=== PATIENT | male | born 1985 | race Caucasian/White ===

== ENCOUNTER → 2017-02-14 20:48 | Emergency (ER) | payer SELFPAY ==
[~2017-02-14 20:48] MED LIST: ALPRAZolam TAB* 0.5 MG PO ONE; FLUoxetine CAP* 20 MG PO ONE; Haloperidol TAB* 5 MG PO ONE; Ibuprofen TAB* 600 MG PO ONE; Mouth Piece, Nicotine* 1 EACH CARTRIDGE INH ONE; Mouth Piece, Nicotine* 1 EACH CARTRIDGE ONE; Nicotine GUM* 2 MG ONE; Nicotine Inhaler* 10 MG AMP ONE; clonazePAM TAB(*) 0.5 MG PO ONE
[2017-02-14 21:30] LABS: Hematocrit 44 % (42-52); Hemoglobin 15.3 g/dl (14.0-18.0); Mean Corpuscular HGB Conc 35 g/dl (31-36); Mean Corpuscular Hemoglobin 33 pg (27-31); Mean Corpuscular Volume 97 fL (80-94); Mean Platelet Volume 7 um3 (7.4-10.4); Red Blood Count 4.59 10^6/ul (4.0-5.4); Red Cell Distribution Width 13 % (10.5-15); White Blood Count 8.5 10^3/ul (3.5-10.8)
[2017-02-14 21:44] LABS: ALT 13 U/L (7-52); AST 17 U/L (13-39); Albumin 4.1 g/dL (3.2-5.2); Alkaline Phosphatase 41 U/L (34-104); Anion Gap 6 mmol/L (2-11); BUN/Creatinine Ratio 13.8 (8-20); Blood Urea Nitrogen 11 mg/dL (6-24); CO2 Carbon Dioxide 26 mmol/L (22-32); Calcium 8.9 mg/dL (8.6-10.3); Chloride 105 mmol/L (101-111); EGFR Non-African American 113.5 (>60); Globulin 2.4 g/dL (2-4); Glucose 76 mg/dL (70-100); Potassium 3.6 mmol/L (3.5-5.0); Sodium 137 mmol/L (133-145); Total Protein 6.5 g/dL (6.4-8.9)
[2017-02-14] MEDS: Nicotine Inhaler* 10 MG AMP INH PRN (21:55)
[2017-02-14 22:14] LABS: Acetaminophen < 15 mcg/mL; Alcohol 68 mg/dL (<10); Salicylate < 2.50 mg/dL (<30)
[2017-02-14] MEDS: Nicotine GUM* 2 MG PO PRN (22:15)
[2017-02-14 22:29] LABS: TSH (Thyroid Stimulating Horm) 1.36 mcIU/mL (0.34-5.60)
[2017-02-15] MEDS: Nicotine GUM* 2 MG PO PRN ×2 (02:05→05:55)
[2017-02-15 03:17] LABS: Urine Bacteria Absent (Absent); Urine Bilirubin Negative (Negative); Urine Glucose Negative (Negative); Urine Nitrite Negative (Negative)
[2017-02-15 03:22] LABS: Benzodiazepine Urine Screen Presumptive Positive (None Detect)
--- NOTE | 2017-02-15 03:41 | ED ---
Shay Montana Nilda, scribed for Ben Calderon MD on 02/14/17 at 2117 . Psychiatric Complaint - HPI Summary HPI Summary: This patient is a 31 year old M BIBA to [facility] with a chief complaint of SI with a plan for the past 2 days and called the police today. The patient rates the pain 0/10 in severity. Patient denies being hospitalized before for mental health. Per triage note patient denies HI. Patient is noncompliant with medications. He reports drinking minimal alcohol today (Monica Wyman) and denies substance abuse. PMHx includes SHELBIE, manic depressive disorder, and OCD ( obsessive about the anxiety). - History Of Current Complaint Chief Complaint: EDMentalHealth Time Seen by Provider: 02/14/17 21:01 Hx Obtained From: Patient, Medical Records Onset/Duration: Sudden Onset, Lasting Days - 2 days Timing: Constant Character: Anxious Aggravating Factor(s): Medication Non-compliance Related History: Positive For: Prior Psychiatric Issues - SHELBIE, Manic depressive disorder, OCD (obsessive about the anxiety) Has Suicidal: Reports: Thoughts, With A Plan Has Homicidal: Denies: Thoughts - Allergies/Home Medications Allergies/Adverse Reactions: Allergies Allergy/AdvReac Type Severity Reaction Status Date / Time Meloxicam Allergy Unknown Verified 02/14/17 22:23 Reaction Details PMH/Surg Hx/FS Hx/Imm Hx Sensory History: Denies: Hx Legally Blind Psychiatric History: Reports: Hx Anxiety, Other Psychiatric Issues/Disorders - Manic Depressive disorder, OCD (obsessive about the anxiety) Infectious Disease History: No Infectious Disease History: Denies: Traveled Outside the [place] in Last 30 Days - Family History Known Family History: Positive: Hypertension, Other - Anxiety, COPD, HLD - Social History Alcohol Use: Occasionally Substance Use Type: Reports: Marijuana Substance Use Comment - Amount & Last Used: former heroin user Smoking Status (MU): Heavy Every Day Tobacco Smoker Review of Systems Negative: Shortness Of Breath Positive: Anxious, Other - SI with a plan; negative HI All Other Systems Reviewed And Are Negative: Yes Physical Exam Triage Information Reviewed: Yes Vital Signs On Initial Exam: Initial Vitals Temp Pulse Resp BP Pulse Ox 98.1 F 66 18 117/73 98 02/14/17 20:54 02/14/17 20:54 02/14/17 20:54 02/14/17 20:54 02/14/17 20:54 Vital Signs Reviewed: Yes Appearance: Positive: Well-Appearing, No Pain Distress Skin: Positive: Warm, Skin Color Reflects Adequate Perfusion, Dry Head/Face: Positive: Normal Head/Face Inspection Eyes: Positive: EOMI, YESICA ENT: Positive: Normal ENT inspection Respiratory/Lung Sounds: Positive: Clear to Auscultation, Breath Sounds Present Cardiovascular: Positive: RRR Abdomen Description: Positive: Nontender, Soft Bowel Sounds: Positive: Present Musculoskeletal: Positive: Normal, Strength/ROM Intact Neurological: Positive: Normal, Sensory/Motor Intact, Alert, Oriented to Person Place, Time Psychiatric: Positive: Affect/Mood Appropriate - Bridgette Coma Scale Coma Scale Total: 15 Diagnostics - Vital Signs Vital Signs Temp Pulse Resp BP Pulse Ox 02/14/17 20:54 98.1 F 66 18 117/73 98 - Laboratory Lab Results: Lab Results 02/14/17 02/14/17 02/15/17 Range/Units 21:20 21:20 02:45 WBC 8.5 (3.5-10.8) 10^3/ul RBC 4.59 (4.0-5.4) 10^6/ul Hgb 15.3 (14.0-18.0) g/dl Hct 44 (42-52) % MCV 97 H (80-94) fL MCH 33 H (27-31) pg MCHC 35 (31-36) g/dl RDW 13 (10.5-15) % Plt Count 230 (150-450) 10^3/ul MPV 7 L (7.4-10.4) um3 Neut % (Auto) 44.9 (38-83) % Lymph % (Auto) 43.5 (25-47) % [place] % (Auto) 7.3 (1-9) % Eos % (Auto) 3.2 (0-6) % Baso % (Auto) 1.1 (0-2) % Absolute Neuts (auto) 3.8 (1.5-7.7) 10^3/ul Absolute Lymphs (auto) 3.7 (1.0-4.8) 10^3/ul Absolute Monos (auto) 0.6 (0-0.8) 10^3/ul Absolute Eos (auto) 0.3 (0-0.6) 10^3/ul Absolute Basos (auto) 0.1 (0-0.2) 10^3/ul Absolute Nucleated RBC 0 10^3/ul Nucleated RBC % 0 Sodium 137 (133-145) mmol/L Potassium 3.6 (3.5-5.0) mmol/L Chloride 105 (101-111) mmol/L Carbon Dioxide 26 (22-32) mmol/L Anion Gap 6 (2-11) mmol/L BUN 11 (6-24) mg/dL Creatinine 0.80 (0.67-1.17) mg/dL Est GFR ( Amer) 146.0 (>60) Est GFR (Non-Af Amer) 113.5 (>60) BUN/Creatinine Ratio 13.8 (8-20) Glucose 76 (70-100) mg/dL Calcium 8.9 (8.6-10.3) mg/dL Total Bilirubin 0.50 (0.2-1.0) mg/dL AST 17 (13-39) U/L ALT 13 (7-52) U/L Alkaline Phosphatase 41 (34-104) U/L Total Protein 6.5 (6.4-8.9) g/dL Albumin 4.1 (3.2-5.2) g/dL Globulin 2.4 (2-4) g/dL Albumin/Globulin Ratio 1.7 (1-3) TSH 1.36 (0.34-5.60) mcIU/mL Urine Color Urine Appearance Urine pH (5-9) Ur Specific [place] (1.010-1.030) Urine Protein (Negative) Urine Ketones (Negative) Urine Blood (Negative) Urine Nitrate (Negative) Urine Bilirubin (Negative) Urine Urobilinogen (Negative) Ur Leukocyte Esterase (Negative) Urine WBC (Auto) (Absent) Urine RBC (Auto) (Absent) Urine Bacteria (Absent) Urine Glucose (Negative) Salicylates < 2.50 (<30) mg/dL Urine Opiates Screen None detected (None Detect) Acetaminophen < 15 mcg/mL Ur Barbiturates Screen None detected (None Detect) Ur Phencyclidine Scrn None detected (None Detect) Ur Amphetamines Screen None detected (None Detect) U Benzodiazepines Scrn Presumptive positive H (None Detect) Urine Cocaine Screen None detected (None Detect) U Cannabinoids Screen Presumptive positive H (None Detect) Serum Alcohol 68 H (<10) mg/dL 10/17/17 Range/Units 02:45 WBC (3.5-10.8) 10^3/ul RBC (4.0-5.4) 10^6/ul Hgb (14.0-18.0) g/dl Hct (42-52) % MCV (80-94) fL MCH (27-31) pg MCHC (31-36) g/dl RDW (10.5-15) % Plt Count (150-450) 10^3/ul MPV (7.4-10.4) um3 Neut % (Auto) (38-83) % Lymph % (Auto) (25-47) % [place] % (Auto) (1-9) % Eos % (Auto) (0-6) % Baso % (Auto) (0-2) % Absolute Neuts (auto) (1.5-7.7) 10^3/ul Absolute Lymphs (auto) (1.0-4.8) 10^3/ul Absolute Monos (auto) (0-0.8) 10^3/ul Absolute Eos (auto) (0-0.6) 10^3/ul Absolute Basos (auto) (0-0.2) 10^3/ul Absolute Nucleated RBC 10^3/ul Nucleated RBC % Sodium (133-145) mmol/L Potassium (3.5-5.0) mmol/L Chloride (101-111) mmol/L Carbon Dioxide (22-32) mmol/L Anion Gap (2-11) mmol/L BUN (6-24) mg/dL Creatinine (0.67-1.17) mg/dL Est GFR ( Amer) (>60) Est GFR (Non-Af Amer) (>60) BUN/Creatinine Ratio (8-20) Glucose (70-100) mg/dL Calcium (8.6-10.3) mg/dL Total Bilirubin (0.2-1.0) mg/dL AST (13-39) U/L ALT (7-52) U/L Alkaline Phosphatase (34-104) U/L Total Protein (6.4-8.9) g/dL Albumin (3.2-5.2) g/dL Globulin (2-4) g/dL Albumin/Globulin Ratio (1-3) TSH (0.34-5.60) mcIU/mL Urine Color Yellow Urine Appearance Clear Urine pH 6.0 (5-9) Ur Specific [place] 1.013 (1.010-1.030) Urine Protein Negative (Negative) Urine Ketones Negative (Negative) Urine Blood 1+ H (Negative) Urine Nitrate Negative (Negative) Urine Bilirubin Negative (Negative) Urine Urobilinogen Negative (Negative) Ur Leukocyte Esterase Negative (Negative) Urine WBC (Auto) Trace(0-5/hpf) (Absent) Urine RBC (Auto) Trace(0-2/hpf) (Absent) Urine Bacteria Absent (Absent) Urine Glucose Negative (Negative) Salicylates (<30) mg/dL Urine Opiates Screen (None Detect) Acetaminophen mcg/mL Ur Barbiturates Screen (None Detect) Ur Phencyclidine Scrn (None Detect) Ur Amphetamines Screen (None Detect) U Benzodiazepines Scrn (None Detect) Urine Cocaine Screen (None Detect) U Cannabinoids Screen (None Detect) Serum Alcohol (<10) mg/dL Result Diagrams: 02/14/17 21:20 02/14/17 21:20 Lab Statement: Any lab studies that have been ordered have been reviewed, and results considered in the medical decision making process. - EKG 03:00 Cardiac Rate: NL EKG Rhythm: Sinus Rhythm ST Segment: Normal Ectopy: None - WI 207 Course/Dx - Course Course Of Treatment: ADMIT TO MHU - Differential Dx/Clinical Impression Provider Diagnosis: Mental health problem Discharge - Discharge Plan Condition: Stable Disposition: PSYCHIATRIC FACILITY-OTHER Discharge Disposition Comment: Signed out pending shift change. Referrals: Non Staff,Doctor [Primary Care Provider] - The documentation as recorded by the Shay beatty Nilda accurately reflects the service I personally performed and the decisions made by me, Ben Calderon MD.
[2017-02-15] MEDS: Nicotine Inhaler* 10 MG AMP INH PRN (05:55)
[2017-02-15 16:39] VITALS: BP 120/72
== END ==
LOC: ED 20:48
DX: R45.851 Suicidal ideations (principal); F41.9 Anxiety disorder, unspecified; F42.9 Obsessive-compulsive disorder, unspecified; Z91.14 Patient's other noncompliance with medication regimen; F12.90 Cannabis use, unspecified, uncomplicated; F17.210 Nicotine dependence, cigarettes, uncomplicated
CPT/HCPCS: 36415; 80053; 80307; 80320; 80329; 81003; 81015; 84443; 85025; 93005; 99282; A9270-GY; G0480

== ENCOUNTER 2017-09-06 08:24 | Emergency (ER) | payer OTHER ==
[2017-09-06 09:30] LABS: ABS Basophils 0 10^3/ul (0-0.2); ABS Eosinophils 0.4 10^3/ul (0-0.6); ABS Monocytes 0.6 10^3/ul (0-0.8); ABS Nucleated RBC 0 10^3/ul; Eosinophil % 4.4 % (0-6); Hematocrit 41 % (42-52); Hemoglobin 14.2 g/dl (14.0-18.0); Lymphocyte % 25.5 % (25-47); Mean Corpuscular HGB Conc 35 g/dl (31-36); Mean Corpuscular Hemoglobin 32 pg (27-31); Mean Corpuscular Volume 93 fL (80-94); Mean Platelet Volume 7.3 um3 (7.4-10.4); Nucleated Red Blood Cells % 0; Platelet Count 221 10^3/ul (150-450); Red Cell Distribution Width 13 % (10.5-15)
--- NOTE | 2017-09-06 09:35 | RAD ---
INDICATION: Left ankle pain COMPARISON: None TECHNIQUE: AP, lateral, and oblique views were obtained. FINDINGS: There is no acute fracture or dislocation. There is lateral soft tissue swelling. IMPRESSION: LATERAL SOFT TISSUE SWELLING. NO ACUTE FRACTURE.
[2017-09-06 09:52] LABS: EGFR Non-African American 102.3 (>60)
--- NOTE | 2017-09-06 10:13 | RAD ---
INDICATION: Leg numbness COMPARISON: None TECHNIQUE: Routine PA, lateral, and oblique imaging was performed . FINDINGS: Bones: There are no acute bony findings. There are no significant osteoarthritic findings. Alignment: Normal Disc spaces: The disc spaces are well-maintained Soft tissues: There are no soft tissue abnormalities. IMPRESSION: NEGATIVE EXAMINATION
[2017-09-06 11:54] VITALS: BP 101/70
--- NOTE | 2017-09-07 08:31 | ED ---
Carlos Montana Jennifer, scribed for Naomi Valdez MD on 09/06/17 at 0912 . Lower Extremity - HPI Summary HPI Summary: The patient is a 32 year old male who presents with left leg pain that began two days ago. The patient reports it began as numbness in his left toes to ankle. Yesterday, the pain radiated up his left calf to the knee. He reports he has no control over his mobility. He denies recent trauma. The patient denies history of blood clots. He denies any current back pain. The patient denies bowel or bladder incontinence, saddle anesthesia, N/V/F - History of Current Complaint Chief Complaint: EDExtremityLower Stated Complaint: LT FOOT NUMBNESS Time Seen by Provider: 09/06/17 08:51 Hx Obtained From: Patient Mechanism Of Injury: Unknown Onset of Pain: Days - 2 days Onset/Duration: Still Present Severity Initially: Moderate Severity Currently: Moderate Pain Intensity: 6 Pain Scale Used: 0-10 Numeric Timing: Constant Location: Is Diffuse - left toes radiates Character Of Pain: Stiffness - Numbness/Tingling Associated Signs And Symptoms: Positive: Other - numbness in left toes, pain radiating up left leg, back pain. NEGATIVE: incontinence. Aggravating Factor(s): Ambulation Alleviating Factor(s): Nothing Able to Bear Weight: Yes - Allergies/Home Medications Allergies/Adverse Reactions: Allergies Allergy/AdvReac Type Severity Reaction Status Date / Time meloxicam Allergy Hives Verified 09/06/17 08:34 Home Medications: Home Medications Fluoxetine HCl [Fluoxetine HCl] 40 mg PO DAILY 09/06/17 [History Confirmed 09/06] clonazePAM [Clonazepam] 0.5 mg PO BID 09/06/17 [History Confirmed 09/06/17] PMH/Surg Hx/FS Hx/Imm Hx Endocrine/Hematology History: Denies: Hx Diabetes, Other Endocrine/Hematological Disorders - Blood clot Cardiovascular History: Denies: Hx Hypertension Sensory History: Denies: Hx Legally Blind Opthamlomology History: Denies: Hx Legally Blind Psychiatric History: Reports: Hx Anxiety, Other Psychiatric Issues/Disorders - Manic Depressive disorder, OCD (obsessive about the anxiety) Denies: Hx Eating Disorder - Surgical History Surgery Procedure, Year, and Place: Shoulder surgery Infectious Disease History: No Infectious Disease History: Denies: Traveled Outside the [place] in Last 30 Days - Family History Known Family History: Positive: Hypertension, Other - Anxiety, COPD, HLD - Social History Alcohol Use: Occasionally Substance Use Type: Reports: Marijuana Substance Use Comment - Amount & Last Used: former heroin user Hx Tobacco Use: Yes Smoking Status (MU): Heavy Every Day Tobacco Smoker Review of Systems Negative: incontinence Positive: Other - Back pain, left leg pain All Other Systems Reviewed And Are Negative: Yes Physical Exam - Summary Physical Exam Summary: GENERAL: ~Patient is a well developed and nourished __(M/F)__ who is lying comfortable in the stretcher. ~Patient is not in any acute respiratory distress. HEAD AND FACE: Normocephalic EYES: PERRLA, EOMI x 2. EARS: Hearing grossly intact. MOUTH: Oropharynx within normal limits. NECK: Supple, trachea is midline, no adenopathy, no JVD, no carotid bruit. CHEST: Symmetric, no tenderness at palpation LUNGS: Clear to auscultation bilaterally. No wheezing or crackles. CVS: Regular rate and rhythm, S1 and S2 present, no murmurs or gallops appreciated. ABDOMEN: Soft, non-tender. Bowel sounds are normal. No abdominal abnormal pulsations. EXTREMITIES: Some bruising on bilateral extremities, upper and lower. 5/5 motor in general. Sensation intact in lower extremities. swelling the lateral ankle on the left without warmth or erythema Full ROM in all major joints, no edema, no cyanosis or clubbing. NEURO: Alert and oriented x 3. No acute neurological deficits. Speech is normal and follows commands. SKIN: Dry and warm Triage Information Reviewed: Yes Vital Signs On Initial Exam: Initial Vitals Temp Pulse Resp BP Pulse Ox 97.7 F 85 16 109/65 100 09/06/17 08:35 09/06/17 08:35 09/06/17 08:35 09/06/17 08:35 09/06/17 08:35 Vital Signs Reviewed: Yes Diagnostics - Vital Signs Vital Signs Temp Pulse Resp BP Pulse Ox 09/06/17 08:35 97.7 F 85 16 109/65 100 - Laboratory Lab Results: Lab Results 09/06/17 09/06/17 09/06/17 Range/Units 09:21 09:21 09:21 WBC 8.0 (3.5-10.8) 10^3/ul RBC 4.40 (4.0-5.4) 10^6/ul Hgb 14.2 (14.0-18.0) g/dl Hct 41 L (42-52) % MCV 93 (80-94) fL MCH 32 H (27-31) pg MCHC 35 (31-36) g/dl RDW 13 (10.5-15) % Plt Count 221 (150-450) 10^3/ul MPV 7.3 L (7.4-10.4) um3 Neut % (Auto) 61.9 (38-83) % Lymph % (Auto) 25.5 (25-47) % [place] % (Auto) 7.6 H (0-7) % Eos % (Auto) 4.4 (0-6) % Baso % (Auto) 0.6 (0-2) % Absolute Neuts (auto) 5.0 (1.5-7.7) 10^3/ul Absolute Lymphs (auto) 2.0 (1.0-4.8) 10^3/ul Absolute Monos (auto) 0.6 (0-0.8) 10^3/ul Absolute Eos (auto) 0.4 (0-0.6) 10^3/ul Absolute Basos (auto) 0 (0-0.2) 10^3/ul Absolute Nucleated RBC 0 10^3/ul Nucleated RBC % 0 ESR 1 (0-14) mm/Hr APTT 31.8 (26.0-36.3) seconds D-Dimer, Quantitative < 200 (Less Than 230) ng/mL Sodium 136 L (139-145) mmol/L Potassium 3.7 (3.5-5.0) mmol/L Chloride 101 (101-111) mmol/L Carbon Dioxide 30 (22-32) mmol/L Anion Gap 5 (2-11) mmol/L BUN 12 (6-24) mg/dL Creatinine 0.87 (0.67-1.17) mg/dL Est GFR ( Amer) 131.6 (>60) Est GFR (Non-Af Amer) 102.3 (>60) BUN/Creatinine Ratio 13.8 (8-20) Glucose 100 (70-100) mg/dL Lactic Acid (0.5-2.0) mmol/L Calcium 8.8 (8.6-10.3) mg/dL Magnesium 2.2 (1.9-2.7) mg/dL Total Bilirubin 0.30 (0.2-1.0) mg/dL AST 18 (13-39) U/L ALT 9 (7-52) U/L Alkaline Phosphatase 45 (34-104) U/L C-React Prot High Sens 2.17 mg/L Total Protein 6.3 L (6.4-8.9) g/dL Albumin 4.1 (3.2-5.2) g/dL Globulin 2.2 (2-4) g/dL Albumin/Globulin Ratio 1.9 (1-3) 09/06/17 09/06/17 Range/Units 09:21 09:21 WBC (3.5-10.8) 10^3/ul RBC (4.0-5.4) 10^6/ul Hgb (14.0-18.0) g/dl Hct (42-52) % MCV (80-94) fL MCH (27-31) pg MCHC (31-36) g/dl RDW (10.5-15) % Plt Count (150-450) 10^3/ul MPV (7.4-10.4) um3 Neut % (Auto) (38-83) % Lymph % (Auto) (25-47) % [place] % (Auto) (0-7) % Eos % (Auto) (0-6) % Baso % (Auto) (0-2) % Absolute Neuts (auto) (1.5-7.7) 10^3/ul Absolute Lymphs (auto) (1.0-4.8) 10^3/ul Absolute Monos (auto) (0-0.8) 10^3/ul Absolute Eos (auto) (0-0.6) 10^3/ul Absolute Basos (auto) (0-0.2) 10^3/ul Absolute Nucleated RBC 10^3/ul Nucleated RBC % ESR (0-14) mm/Hr APTT (26.0-36.3) seconds D-Dimer, Quantitative (Less Than 230) ng/mL Sodium (139-145) mmol/L Potassium (3.5-5.0) mmol/L Chloride (101-111) mmol/L Carbon Dioxide (22-32) mmol/L Anion Gap (2-11) mmol/L BUN (6-24) mg/dL Creatinine (0.67-1.17) mg/dL Est GFR ( Amer) (>60) Est GFR (Non-Af Amer) (>60) BUN/Creatinine Ratio (8-20) Glucose (70-100) mg/dL Lactic Acid 1.2 (0.5-2.0) mmol/L Calcium 8.9 (8.6-10.3) mg/dL Magnesium (1.9-2.7) mg/dL Total Bilirubin (0.2-1.0) mg/dL AST (13-39) U/L ALT (7-52) U/L Alkaline Phosphatase (34-104) U/L C-React Prot High Sens mg/L Total Protein (6.4-8.9) g/dL Albumin (3.2-5.2) g/dL Globulin (2-4) g/dL Albumin/Globulin Ratio (1-3) Result Diagrams: 09/06/17 09:21 09/06/17 09:21 Lab Statement: Any lab studies that have been ordered have been reviewed, and results considered in the medical decision making process. - Radiology Ankle XR Xray Interpretation: No Acute Changes - LATERAL SOFT TISSUE SWELLING. NO ACUTE FRACTURE. Dr. Valdez has reviewed this report. Radiology Interpretation Completed By: Radiologist L-Spine XR Xray Interpretation: No Acute Changes - NEGATIVE EXAMINATION. Dr. Valdez has reviewed this report. Radiology Interpretation Completed By: Radiologist Lower Extremity Course/Dx - Course Course Of Treatment: The patient is a 32 year old male who presents with left leg pain that began two days ago. Bloodwork was obtained. Ankle XR and L-spine XR were obtained and showedsoft tissue swelling of the left ankle. The patient is diagnosed with pain in the extremities. The patient is instructed to follow up with orthopedics in 3 days. Return precautions given - Diagnoses Provider Diagnoses: Extremity pain Discharge - Sign-Out/Discharge Documenting (check all that apply): Discharge/Admit/Transfer - Discharge Plan Condition: Stable Disposition: HOME Patient Education Materials: Leg Pain (ED) Referrals: Jose Ortiz MD [Medical Doctor] - Additional Instructions: Follow up with Dr. Vail, orthopedics, in three days. Return to the emergency department for any new or worsening symptoms. - Billing Disposition and Condition Condition: STABLE Disposition: HOME The documentation as recorded by the Carlos beatty Jennifer accurately reflects the service I personally performed and the decisions made by me, Naomi Valdez MD.
== END 2017-09-06 11:53 | disposition home or self-care (01) ==
LOC: ED 08:24
DX: M79.605 Pain in left leg (principal); M54.9 Dorsalgia, unspecified; F17.210 Nicotine dependence, cigarettes, uncomplicated
CPT/HCPCS: 36415; 72110; 80053; 82310; 83605; 83735; 85025; 85379; 85652; 85730; 86141; 99282

== ENCOUNTER 2017-09-15 08:27 | Emergency (ER) | payer OTHER ==
[2017-09-15 08:38] VITALS: BP 121/82
[2017-09-15] MEDS ORDERED: Ketorolac INJ* 30 MG/ML 1 ML VIAL IV PUSH ONE (09:01)
[2017-09-15] MEDS ORDERED: Nicotine Inhaler* 10 MG AMP INH ONE (09:08)
[2017-09-15] MEDS ORDERED: Mouth Piece, Nicotine* 1 EACH CARTRIDGE INH PRN ×2 (09:08→10:57)
[2017-09-15] MEDS ORDERED: Mouth Piece, Nicotine* 1 EACH CARTRIDGE ONE (09:14)
[2017-09-15 09:37] LABS: Hematocrit 45 % (42-52); Hemoglobin 15.4 g/dl (14.0-18.0); Mean Corpuscular HGB Conc 34 g/dl (31-36); Mean Corpuscular Hemoglobin 32 pg (27-31); Mean Corpuscular Volume 93 fL (80-94); Mean Platelet Volume 7.8 um3 (7.4-10.4); Platelet Count 228 10^3/ul (150-450); Red Blood Count 4.83 10^6/ul (4.0-5.4); Red Cell Distribution Width 13 % (10.5-15); White Blood Count 12.8 10^3/ul (3.5-10.8)
[2017-09-15 09:53] LABS: EGFR Non-African American 114.4 (>60)
[2017-09-15] MEDS ORDERED: traMADol TAB* 50 MG PO ONE (10:30)
--- NOTE | 2017-09-15 10:32 | RAD ---
INDICATION: Unable to move left foot. 32-year-old patient. COMPARISON: None TECHNIQUE: Ankle brachial indices were calculated with Doppler waveform analysis of the dorsalis pedis and posterior tibial arteries. The right ankle-brachial index is calculated at 1.4. Waveform analysis shows triphasic waveforms The left ankle-brachial index is calculated at 1.4. Waveform analysis shows triphasic waveforms . IMPRESSION: NORMAL ANKLE-BRACHIAL INDICES.
[2017-09-15] MEDS ORDERED: Nicotine Inhaler* 10 MG AMP ONE (10:56)
[2017-09-15] MEDS ORDERED: Nicotine Inhaler* 10 MG AMP INH PRN (10:57)
[2017-09-15] MEDS ORDERED: HYDROcodone/ACETAMIN 5-325 MG* 1 TAB PO ONE (13:18)
[2017-09-15] MEDS ORDERED: HYDROcodone/ACETAMIN 5-325 MG* 1 TAB ONE (13:20)
--- NOTE | 2017-09-15 21:17 | CONS ---
CONSULTATION REPORT: DATE OF CONSULT: 09/15/17 PATIENT OF: Dr. Messina. PRIMARY CARE PHYSICIAN: There is no primary care physician. HISTORY OF PRESENT ILLNESS: This is a 32-year-old right-handed man who, about 10 days ago, developed some numbness by his left ankle. This slowly progressed to the lateral aspect of the left leg, just higher up in his left knee. The inner aspect of his leg is not affected. In addition, he has had weakness in his left leg at his ankle, both dorsiflexion and plantar flexion. This has been steady in the past 9 days or so. He does not think it has gotten worse. He does not have any bowel or bladder problems. He has no back pain, but has foot, ankle, and knee pain. and a change in walking. He walks with a footdrop and lifts his leg up higher. Of note, he also has a C1-C2 fracture, apparently happening 10 years ago. There was no cord compression at this time, although he said there was apparently some significant central stenosis. He has no symptoms in the right leg or in either arm. The numbness does go into his toes. PAST MEDICAL HISTORY: He has anxiety, manic depressive disorder, and some OCD. PAST SURGICAL HISTORY: He has had shoulder surgery. MEDICATIONS: Include: 1. Tramadol. 2. Prozac 40 mg daily. 3. Klonopin 0.5 t.i.d. p.r.n. ALLERGIES: He is allergic to MELOXICAM. FAMILY HISTORY: Significant for hypertension, OCD, COPD, and hyperlipidemia. SOCIAL HISTORY: He drinks alcohol occasionally, uses marijuana occasionally. He is a former heroin abuser. He is a heavy everyday smoker. PHYSICAL EXAM: Temperature 98.6, pulse 54, respiratory rate 16, blood pressure 121/82. He is alert and oriented with normal speech and comprehension. Cranial nerves II through XII are intact. Fundi were benign. Motor exam revealed normal tone and strength in his upper extremities and in his right leg. He has 0/5 strength with dorsiflexion, inversion, eversion of his left foot with 3-/5 strength in his left plantar flexion. Sensation is decreased to touch and pin from the lateral aspect of his leg above the knee down into his foot. Sensation is otherwise intact. He has 1+ reflexes in his arms, 3+ reflexes in his leg with perhaps a hint of clonus at the knees. He has 2+ right ankle jerk, absent left ankle jerk. Toes were equivocal to downgoing. Chest: Clear. Cardiovascular: Regular rate and rhythm. Abdomen: Soft with positive bowel sounds. DIAGNOSTIC STUDIES/LAB DATA: His white count is 12.8, normal CBC otherwise. CMP was normal other than a total protein of 6.3 and a sodium of 137. He was positive for cannabinoids and benzodiazepines in his urine. Serum alcohol was negative. He had a lumbar x-ray on 09/16/17, which was negative. ASSESSMENT AND PLAN: I discussed with Qasim that he has not just footdrop or weakness in his gastrocs as well, which means that it is not a single nerve root that is injured, it would be at least L5 and S1. The absent ankle jerk on that side suggested this is a nerve impingement causing the specific problem as well as the numbness that is mostly radicular pattern rather than a central pattern. Since his weakness is very significant of recent onset and his numbness is getting worse, it makes sense to get a lumbar MRI scan today. He also has abnormal knee reflexes and with his history of significant cervical injury as well as chronic neck pain, I wonder whether there is some degree of stenosis perhaps irritating his spinal cord. I do think that this is likely cause of his foot weakness, but because of issues mentioned above and because his symptoms are not bilateral, but we will see what that shows as well. Dr. Messina is going to see -maybe that he needs to be admitted for observation if the MRI scan cannot be done in the near future. Thank you for sharing his case. [id number]/[facility] #: [id number] [facility]
--- NOTE | 2017-09-16 19:03 | ED ---
Mariela Montana Gabriel, scribed for Cornelio Messina MD on 09/15/17 at 0851 . Lower Extremity - HPI Summary HPI Summary: This patient is a 32 year old M presenting to [facility] [place] accompanied by his fianc with a chief complaint of LLE pain that began ten days ago. The patient rates the pain 6/10 in severity. Patient reports numbness, tingling, trouble ambulating, paralysis of the left foot/ankle, and disturbed sleep due to pain. Patient denies injury and incontinence. Pt states he has been falling very often due to him catching it on things due to a drop. Pt had bilateral blurred vision and near LOC 3 days before the symptoms began her is unsure if this contributed to the current complaint. Pt denies history of blood clots in his family. He attempted to call Dr. Vail from his last visit and was unable to be seen. Current even day smoker. - History of Current Complaint Chief Complaint: EDExtremityLower Stated Complaint: LT LEG PROBLEM Time Seen by Provider: 09/15/17 08:40 Hx Obtained From: Patient Mechanism Of Injury: Unknown Onset/Duration: Still Present Severity Initially: Moderate Severity Currently: Moderate Pain Intensity: 6 Pain Scale Used: 0-10 Numeric Timing: Constant Associated Signs And Symptoms: Positive: Other - numbness, tingling, trouble ambulating, paralysis of the left foot/ankle Able to Bear Weight: Yes - Allergies/Home Medications Allergies/Adverse Reactions: Allergies Allergy/AdvReac Type Severity Reaction Status Date / Time meloxicam Allergy Hives Verified 09/15/17 08:29 Home Medications: Home Medications FLUoxetine CAP* [PROzac CAP*] 40 mg PO DAILY 09/15/17 [History Confirmed ] Ibuprofen TAB* [Advil TAB*] 200 - 800 mg PO Q6H PRN 09/15/17 [History Confirmed 09/15/17] clonazePAM TAB(*) [KlonoPIN TAB(*)] 0.5 mg PO TID PRN 09/15/17 [History Confirmed 09/15/17] PMH/Surg Hx/FS Hx/Imm Hx Endocrine/Hematology History: Denies: Hx Diabetes, Other Endocrine/Hematological Disorders - Blood clot Cardiovascular History: Denies: Hx Hypertension Musculoskeletal History: Reports: Other Musculoskeletal History - broken neck Sensory History: Denies: Hx Legally Blind Opthamlomology History: Denies: Hx Legally Blind Psychiatric History: Reports: Hx Anxiety, Other Psychiatric Issues/Disorders - Manic Depressive disorder, OCD (obsessive about the anxiety) Denies: Hx Eating Disorder - Surgical History Surgery Procedure, Year, and Place: Shoulder surgery Infectious Disease History: No Infectious Disease History: Denies: Traveled Outside the [place] in Last 30 Days - Family History Known Family History: Positive: Cardiac Disease, Hypertension, Other - Anxiety, COPD, HLD - Social History Lives: With Family Alcohol Use: Occasionally Substance Use Type: Reports: Marijuana Substance Use Comment - Amount & Last Used: former heroin user Hx Tobacco Use: Yes Smoking Status (MU): Heavy Every Day Tobacco Smoker Review of Systems Positive: Other - trouble ambulating, paralysis of the left foot/ankle, and disturbed sleep due to pain. Negative: Fever, Chills Negative: Erythema Negative: Sore Throat Negative: Chest Pain Negative: Shortness Of Breath, Cough Negative: Abdominal Pain, Vomiting, Nausea Negative: dysuria, hematuria Positive: Other - LLE pain . Negative: Myalgia, Edema Negative: Rash Neurological: Negative - dizziness Positive: Numbness All Other Systems Reviewed And Are Negative: Yes Physical Exam - Summary Physical Exam Summary: Constitutional: Well-developed, Well-nourished, Alert. (-) Distressed Skin: Warm, Dry HENT: Normocephalic; Atraumatic Eyes: Conjunctiva normal Neck: Musculoskeletal ROM normal neck. (-) JVD, (-) Stridor, (-) Tracheal deviation Cardio: Rhythm regular, rate normal, Heart sounds normal;. Radial pulses are 2+ and symmetric. (-) Murmur. There is good posterior distal tibialis pulses but the pedal pulse is not palpable Pulmonary/Chest wall: Effort normal. (-) Respiratory distress, (-) Wheezes, (-) Rales Abd: Soft, (-) Tenderness, (-) Distension, (-) Guarding, (-) Rebound Musculoskeletal: (-) Edema, there is no obvious foot drop on ambulation, steady gait Lymph: (-) Cervical adenopathy Neuro: Alert, Oriented x3 Psych: Mood and affect Normal Bed side Doppler was used and dorsal pedal pulse was not found Triage Information Reviewed: Yes Vital Signs On Initial Exam: Initial Vitals Temp Pulse Resp BP Pulse Ox 98.6 F 54 16 121/82 97 09/15/17 08:29 09/15/17 08:29 09/15/17 08:29 09/15/17 08:29 09/15/17 08:29 Vital Signs Reviewed: Yes Diagnostics - Vital Signs Vital Signs Temp Pulse Resp BP Pulse Ox 09/15/17 08:29 98.6 F 54 16 121/82 97 - Laboratory Result Diagrams: 09/15/17 09:26 09/15/17 09:26 Lab Statement: Any lab studies that have been ordered have been reviewed, and results considered in the medical decision making process. - Additional Comments Diagnostic Additional Comments: Extremity arterial study reveals, per radiologist, NORMAL ANKLE-BRACHIAL INDICES. ED physician has reviewed this radiology report Re-Evaluation - Re-Evaluation First Eval Re-Evaluation Time: 10:34 Change: Unchanged Comment: Pt does not dorsiflex his foot with painful stimulus. He sates he has a neurology appointment in [place] coming up. Second Eval Re-Evaluation Time: 14:38 Change: Worse Comment: The patient ios requesting to leave. He states he needs to go home to watch his child. He will sign out AMA. Lower Extremity Course/Dx - Course Assessment/Plan: This patient is a 32 year old M presenting to [facility] accompanied by his fianc with a chief complaint of LLE pain that began ten days ago. The patient rates the pain 6/10 in severity. Patient reports numbness , tingling, trouble ambulating, paralysis of the left foot/ankle, and disturbed sleep due to pain. Patient denies injury and incontinence. Pt states he has been falling very often due to him catching it on things due to a drop. Pt had bilateral blurred vision and near LOC 3 days before the symptoms began her is unsure if this contributed to the current complaint. Pt denies history of blood clots in his family. He attempted to call Dr. Vail from his last visit and was unable to be seen. Current even day smoker. The patient is going back and forth on whether he has pain or numbness. Originally he claimed it was numb, then he would complain of pain. Extremity arterial study reveals, per radiologist, NORMAL ANKLE-BRACHIAL INDICES. ED physician has reviewed this radiology report. Test results with no significant abnormalities. In the ED course the patient was given ultram and toradol which relieved his pain. [id number] We discussed patient care with Dr. Barksdale after he saw the patient. He recommended a MRI neck and L- spine as well as an OBV to admit. The patient is refusing to stay and will sign out AMA. He was informed about his appointment this Tuesday that was organized for him. - Diagnoses Provider Diagnoses: Foot drop, Left against medical advice - Physician Notifications Discussed Care Of Patient With: Reyes Barksdale Time Discussed With Above Provider: 10:34 Instructed by Provider To: Other - He has agreed to come see the patient. Discharge - Sign-Out/Discharge Documenting (check all that apply): Discharge/Admit/Transfer - Discharge Plan Condition: Fair Disposition: AGAINST MEDICAL ADVICE The documentation as recorded by the Mariela beatty Gabriel accurately reflects the service I personally performed and the decisions made by me, Cornelio Messina MD.
== END 2017-09-15 15:11 | disposition left against medical advice (07) ==
LOC: ED 08:27
DX: M21.372 Foot drop, left foot (principal); F17.200 Nicotine dependence, unspecified, uncomplicated; Z91.81 History of falling; Z53.21 Procedure and treatment not carried out due to patient leaving prior to being seen by health care provider; Z88.8 Allergy status to other drugs, medicaments and biological substances
CPT/HCPCS: 36415; 80053; 80307; 80320; 85027; 86140; 93922; 96374; 99283; A9270-GY; G0480; J1885

== ENCOUNTER 2018-02-28 21:53 | Emergency (ER) | payer OTHER ==
[2018-02-28 22:26] LABS: Urine Appearance Clear; Urine Blood 1+ (Negative); Urine Color Straw; Urine Ketones Negative (Negative); Urine Protein Negative (Negative); Urine Red Blood Cell Trace(0-2/hpf) (Absent); Urine Specific Gravity 1.004 (1.010-1.030); Urine Urobilinogen Negative (Negative); Urine White Blood Cell Absent (Absent)
[2018-02-28] MEDS ORDERED: Nicotine Inhaler* 10 MG AMP ONE (22:29)
[2018-02-28] MEDS ORDERED: Mouth Piece, Nicotine* 1 EACH CARTRIDGE ONE (22:29)
[2018-02-28 22:34] LABS: ABS Basophils 0.1 10^3/ul (0-0.2); ABS Eosinophils 0.3 10^3/ul (0-0.6); ABS Lymphocytes 3.5 10^3/ul (1.0-4.8); ABS Monocytes 0.8 10^3/ul (0-0.8); ABS Neutrophils 7.2 10^3/ul (1.5-7.7); ABS Nucleated RBC 0 10^3/ul; Eosinophil % 2.1 % (0-6); Hematocrit 48 % (42-52); Hemoglobin 16.8 g/dl (14.0-18.0); Lymphocyte % 29.7 % (25-47); Mean Corpuscular HGB Conc 35 g/dl (31-36); Mean Corpuscular Hemoglobin 33 pg (27-31); Mean Corpuscular Volume 94 fL (80-94); Mean Platelet Volume 7.6 um3 (7.4-10.4); Nucleated Red Blood Cells % 0.1; Platelet Count 232 10^3/ul (150-450); Red Blood Count 5.16 10^6/ul (4.00-5.40); Red Cell Distribution Width 13 % (10.5-15); White Blood Count 11.9 10^3/ul (3.5-10.8)
[2018-02-28 22:48] LABS: EGFR Non-African American 108.1 (>60)
[2018-02-28] MEDS ORDERED: Mouth Piece, Nicotine* 1 EACH CARTRIDGE INH ONE (23:00)
[2018-02-28] MEDS ORDERED: Haloperidol INJ IV/IM* 5 MG/ML AMP ONE (23:07)
[2018-02-28] MEDS ORDERED: diPHENhydraMINE PO* 50 MG ONE (23:07)
[2018-02-28] MEDS ORDERED: LORazepam INJ* 2 MG/ML 1 ML VIAL ONE (23:07)
--- NOTE | 2018-02-28 23:39 | ED ---
Psychiatric Complaint - HPI Summary HPI Summary: A 32 y/o male presents to the ED c/o SI. According to him on 02/24/2018 he took 22 valium attempting suicide but still woke up the next day. The patient states that he is "looking around the room for things to kill himself with" but states that he came into the ED because he wants the suicidal thoughts to stop. 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 - History Of Current Complaint Chief Complaint: EDMentalHealth Time Seen by Provider: 02/28/18 22:06 Hx Obtained From: Patient Onset/Duration: Sudden Onset, Still Present Timing: Constant Severity Initially: Moderate Severity Currently: Moderate Character: Frustrated Has Suicidal: Reports: Thoughts, With A Plan - Allergies/Home Medications Allergies/Adverse Reactions: Allergies Allergy/AdvReac Type Severity Reaction Status Date / Time meloxicam Allergy Hives Verified 02/28/18 22:00 PMH/Surg Hx/FS Hx/Imm Hx Endocrine/Hematology History: Denies: Hx Diabetes, Other Endocrine/Hematological Disorders - Blood clot Cardiovascular History: Denies: Hx Hypertension Musculoskeletal History: Reports: Other Musculoskeletal History - broken neck Sensory History: Denies: Hx Legally Blind Opthamlomology History: Denies: Hx Legally Blind Psychiatric History: Reports: Hx Anxiety, Other Psychiatric Issues/Disorders - Manic Depressive disorder, OCD (obsessive about the anxiety) Denies: Hx Eating Disorder - Surgical History Surgery Procedure, Year, and Place: Shoulder surgery Infectious Disease History: No Infectious Disease History: Denies: Traveled Outside the [place] in Last 30 Days - Family History Known Family History: Positive: Cardiac Disease, Hypertension, Other - Anxiety, COPD, HLD - Social History Alcohol Use: Daily Alcohol Amount: drinking more since taken off meds by OR Substance Use Type: Reports: Marijuana, Other Substance Use Comment - Amount & Last Used: former heroin user,opioids. Hx Tobacco Use: Yes Smoking Status (MU): Heavy Every Day Tobacco Smoker Review of Systems Negative: Fever Positive: Other - Positive: SI with a plan All Other Systems Reviewed And Are Negative: Yes Physical Exam - Summary Physical Exam Summary: Appearance: Well appearing, no pain distress Skin: warm, dry, reflects adequate perfusion Head/face: normal Eyes: EOMI, YESICA ENT: normal Neck: supple, non-tender Respiratory: CTA, breath sounds present Cardiovascular: RRR, pulses symmetrical Abdomen: non-tender, soft Bowel: present Musculoskeletal: normal, strength/ROM intact Neuro: normal, sensory motor intact, A&Ox3 Psych: Depressed affect, anxious Triage Information Reviewed: Yes Vital Signs On Initial Exam: Initial Vitals Temp Pulse Resp BP Pulse Ox 98.0 F 84 16 113/98 98 02/28/18 21:57 02/28/18 21:57 02/28/18 21:57 02/28/18 21:57 02/28/18 21:57 Vital Signs Reviewed: Yes Diagnostics - Vital Signs Vital Signs Temp Pulse Resp BP Pulse Ox 02/28/18 21:57 98.0 F 84 16 113/98 98 - Laboratory Lab Results: Lab Results 02/28/18 02/28/18 02/28/18 Range/Units 22:16 22:16 22:26 WBC 11.9 H (3.5-10.8) 10^3/ul RBC 5.16 (4.00-5.40) 10^6/ul Hgb 16.8 (14.0-18.0) g/dl Hct 48 (42-52) % MCV 94 (80-94) fL MCH 33 H (27-31) pg MCHC 35 (31-36) g/dl RDW 13 (10.5-15) % Plt Count 232 (150-450) 10^3/ul MPV 7.6 (7.4-10.4) um3 Neut % (Auto) 60.4 (38-83) % Lymph % (Auto) 29.7 (25-47) % [place] % (Auto) 7.1 H (0-7) % Eos % (Auto) 2.1 (0-6) % Baso % (Auto) 0.7 (0-2) % Absolute Neuts (auto) 7.2 (1.5-7.7) 10^3/ul Absolute Lymphs (auto) 3.5 (1.0-4.8) 10^3/ul Absolute Monos (auto) 0.8 (0-0.8) 10^3/ul Absolute Eos (auto) 0.3 (0-0.6) 10^3/ul Absolute Basos (auto) 0.1 (0-0.2) 10^3/ul Absolute Nucleated RBC 0 10^3/ul Nucleated RBC % 0.1 Sodium (135-145) mmol/L Potassium (3.5-5.0) mmol/L Chloride (101-111) mmol/L Carbon Dioxide (22-32) mmol/L Anion Gap (2-11) mmol/L BUN (6-24) mg/dL Creatinine (0.67-1.17) mg/dL Est GFR ( Amer) (>60) Est GFR (Non-Af Amer) (>60) BUN/Creatinine Ratio (8-20) Glucose (70-100) mg/dL Calcium (8.6-10.3) mg/dL Total Bilirubin (0.2-1.0) mg/dL AST (13-39) U/L ALT (7-52) U/L Alkaline Phosphatase (34-104) U/L Total Protein (6.4-8.9) g/dL Albumin (3.2-5.2) g/dL Globulin (2-4) g/dL Albumin/Globulin Ratio (1-3) TSH Urine Color Straw Urine Appearance Clear Urine pH 6.0 (5-9) Ur Specific [place] 1.004 L (1.010-1.030) Urine Protein Negative (Negative) Urine Ketones Negative (Negative) Urine Blood 1+ A (Negative) Urine Nitrate Negative (Negative) Urine Bilirubin Negative (Negative) Urine Urobilinogen Negative (Negative) Ur Leukocyte Esterase Negative (Negative) Urine WBC (Auto) Absent (Absent) Urine RBC (Auto) Trace(0-2/hpf) (Absent) Urine Bacteria Absent (Absent) Urine Glucose Negative (Negative) Salicylates (<30) mg/dL Urine Opiates Screen None detected (None Detect) Acetaminophen mcg/mL Ur Barbiturates Screen None detected (None Detect) Ur Phencyclidine Scrn None detected (None Detect) Ur Amphetamines Screen None detected (None Detect) U Benzodiazepines Scrn Presumptive positive A (None Detect) Urine Cocaine Screen None detected (None Detect) U Cannabinoids Screen Presumptive positive A (None Detect) Serum Alcohol (<10) mg/dL 02/28/18 Range/Units 22:26 WBC (3.5-10.8) 10^3/ul RBC (4.00-5.40) 10^6/ul Hgb (14.0-18.0) g/dl Hct (42-52) % MCV (80-94) fL MCH (27-31) pg MCHC (31-36) g/dl RDW (10.5-15) % Plt Count (150-450) 10^3/ul MPV (7.4-10.4) um3 Neut % (Auto) (38-83) % Lymph % (Auto) (25-47) % Duval % (Auto) (0-7) % Eos % (Auto) (0-6) % Baso % (Auto) (0-2) % Absolute Neuts (auto) (1.5-7.7) 10^3/ul Absolute Lymphs (auto) (1.0-4.8) 10^3/ul Absolute Monos (auto) (0-0.8) 10^3/ul Absolute Eos (auto) (0-0.6) 10^3/ul Absolute Basos (auto) (0-0.2) 10^3/ul Absolute Nucleated RBC 10^3/ul Nucleated RBC % Sodium 143 (135-145) mmol/L Potassium 4.0 (3.5-5.0) mmol/L Chloride 111 (101-111) mmol/L Carbon Dioxide 25 (22-32) mmol/L Anion Gap 7 (2-11) mmol/L BUN 9 (6-24) mg/dL Creatinine 0.83 (0.67-1.17) mg/dL Est GFR ( Amer) 130.8 (>60) Est GFR (Non-Af Amer) 108.1 (>60) BUN/Creatinine Ratio 10.8 (8-20) Glucose 87 (70-100) mg/dL Calcium 9.4 (8.6-10.3) mg/dL Total Bilirubin 0.50 (0.2-1.0) mg/dL AST 17 (13-39) U/L ALT 11 (7-52) U/L Alkaline Phosphatase 47 (34-104) U/L Total Protein 6.8 (6.4-8.9) g/dL Albumin 4.5 (3.2-5.2) g/dL Globulin 2.3 (2-4) g/dL Albumin/Globulin Ratio 2.0 (1-3) TSH Pending Urine Color Urine Appearance Urine pH (5-9) Ur Specific [place] (1.010-1.030) Urine Protein (Negative) Urine Ketones (Negative) Urine Blood (Negative) Urine Nitrate (Negative) Urine Bilirubin (Negative) Urine Urobilinogen (Negative) Ur Leukocyte Esterase (Negative) Urine WBC (Auto) (Absent) Urine RBC (Auto) (Absent) Urine Bacteria (Absent) Urine Glucose (Negative) Salicylates < 2.50 (<30) mg/dL Urine Opiates Screen (None Detect) Acetaminophen < 15 mcg/mL Ur Barbiturates Screen (None Detect) Ur Phencyclidine Scrn (None Detect) Ur Amphetamines Screen (None Detect) U Benzodiazepines Scrn (None Detect) Urine Cocaine Screen (None Detect) U Cannabinoids Screen (None Detect) Serum Alcohol 127 H (<10) mg/dL Result Diagrams: 02/28/18 22:26 02/28/18 22:26 Lab Statement: Any lab studies that have been ordered have been reviewed, and results considered in the medical decision making process. Re-Evaluation - Re-Evaluation First Eval Re-Evaluation Time: 00:42 Change: Unchanged Comment: Pt has been medically cleared for MHE. Course/Dx - Course Course Of Treatment: A 32 y/o male presents to the ED c/o SI. According to him on 02/24/2018 he took 22 valium attempting to kill himself but still woke up the next day. The patient has been sleeping and is pending MHE. He will be signed out to Dr. Valdez at shift change. Dx: depression, SI, substance abuse. - Differential Dx/Clinical Impression Differential Diagnosis/HQI/PQRI: Positive: Anxiety, Depression, Suicidal Ideation Provider Diagnosis: Depression, Suicidal ideation, Substance abuse - Critical Care Time Critical Care Time: 30-74 min Discharge - Sign-Out/Discharge Documenting (check all that apply): Sign-Out Patient Signing out patient TO: Naomi Valdez - Discharge Plan Referrals: No Primary Care Phys,NOPCP [Primary Care Provider] - - Attestation Statements Document Initiated by Scribe: Yes Documenting Scribe: Chaz Cornejo Provider For Whom Scribe is Documenting (Include Credential): Tim Omer MD Scribe Attestation: IChaz, scribed for Tim Omer MD on 03/01/18 at 0620. Scribe Documentation Reviewed: Yes Provider Attestation: The documentation as recorded by the scribe, Chaz Cornejo accurately reflects the service I personally performed and the decisions made by me, iTm Omer MD
[2018-02-28] MEDS ORDERED: Nicotine Inhaler* 10 MG AMP INH ONE (23:54)
[2018-03-01] MEDS ORDERED: methylPREDNISolone 125 MG* 2 ML VIAL ONE (04:12)
--- NOTE | 2018-03-01 08:01 | ED ---
Progress - Progress Note Progress Note: This patient was signed out to Dr. Valdez from Dr. Omer, pending dispo, awaiting MHE. MHE was done by Dr. Vizcaino at 1001 and the patient will be discharged with dx of substance abuse. This patient is not currently suicidal. He will go to [facility] in [place] for detox tomorrow. The patient is hemodynamically stable and safe for discharge. Re-Evaluation - Re-Evaluation First Eval Re-Evaluation Time: 00:42 Change: Unchanged Comment: Pt has been medically cleared for MHE. Course/Dx - Diagnoses Provider Diagnoses: Depression, Suicidal ideation, Substance abuse Discharge - Sign-Out/Discharge Documenting (check all that apply): Patient Departure - Discharge Plan Condition: Stable Disposition: HOME Referrals: [facility] [Outside] Additional Instructions: RETURN TO THE EMERGENCY DEPARTMENT FOR CHANGING OR WORSENING SYMPTOMS. - Billing Disposition and Condition Condition: STABLE Disposition: Home - Attestation Statements Document Initiated by Scribe: Yes Documenting Scribe: Raj Kohli Provider For Whom Scribe is Documenting (Include Credential): Naomi Valdez MD Scribe Attestation: Raj Montana, scribed for Naomi Valdez MD on 03/02/18 at 2013. Scribe Documentation Reviewed: Yes Provider Attestation: The documentation as recorded by the Raj beatty accurately reflects the service I personally performed and the decisions made by , Naomi Valdez MD
[2018-03-01] MEDS: Nicotine GUM* 2 MG PO PRN ×2 (08:07→10:09)
--- NOTE | 2018-03-01 09:05 | PN ---
ED Flex Patient Progress Note Date of Service: 02/28/18 Subjective: This is a 32 year-old M who is pending admission to [facility] / transfer to another psychiatric facility / discharge to home / or being observed secondary to suicidal attempt and drug abuse. Pt. examined in ER room 7. He is drinking coffee. Objective: Vitals: Most recent vital signs documented below. General NAD, Alert and oriented x3. Laboratory: Current laboratory results documented below. Assessment: Pending MHE. Plan: Pending psychiatric or medical consultation to observe / transfer / admit / discharge will follow up daily . Vital Signs Temp Pulse Resp BP Pulse Ox 98.0 F 73 16 114/63 94 02/28/18 21:57 03/01/18 07:00 03/01/18 06:30 03/01/18 06:30 03/01/18 07:00 Lab Results - Entire Visit 02/28/18 02/28/18 02/28/18 22:26 22:26 22:16 WBC 11.9 H RBC 5.16 Hgb 16.8 Hct 48 MCV 94 MCH 33 H MCHC 35 RDW 13 Plt Count 232 MPV 7.6 Neut % (Auto) 60.4 Lymph % (Auto) 29.7 [place] % (Auto) 7.1 H Eos % (Auto) 2.1 Baso % (Auto) 0.7 Absolute Neuts (auto) 7.2 Absolute Lymphs (auto) 3.5 Absolute Monos (auto) 0.8 Absolute Eos (auto) 0.3 Absolute Basos (auto) 0.1 Absolute Nucleated RBC 0 Nucleated RBC % 0.1 Sodium 143 Potassium 4.0 Chloride 111 Carbon Dioxide 25 Anion Gap 7 BUN 9 Creatinine 0.83 Est GFR ( Amer) 130.8 Est GFR (Non-Af Amer) 108.1 BUN/Creatinine Ratio 10.8 Glucose 87 Calcium 9.4 Total Bilirubin 0.50 AST 17 ALT 11 Alkaline Phosphatase 47 Total Protein 6.8 Albumin 4.5 Globulin 2.3 Albumin/Globulin Ratio 2.0 TSH 1.02 Urine Color Urine Appearance Urine pH Ur Specific [place] Urine Protein Urine Ketones Urine Blood Urine Nitrate Urine Bilirubin Urine Urobilinogen Ur Leukocyte Esterase Urine WBC (Auto) Urine RBC (Auto) Urine Bacteria Urine Glucose Salicylates < 2.50 Urine Opiates Screen None detected Acetaminophen < 15 Ur Barbiturates Screen None detected Ur Phencyclidine Scrn None detected Ur Amphetamines Screen None detected U Benzodiazepines Scrn Presumptive positive A Urine Cocaine Screen None detected U Cannabinoids Screen Presumptive positive A Serum Alcohol 127 H 02/28/18 22:16 WBC RBC Hgb Hct MCV MCH MCHC RDW Plt Count MPV Neut % (Auto) Lymph % (Auto) [place] % (Auto) Eos % (Auto) Baso % (Auto) Absolute Neuts (auto) Absolute Lymphs (auto) Absolute Monos (auto) Absolute Eos (auto) Absolute Basos (auto) Absolute Nucleated RBC Nucleated RBC % Sodium Potassium Chloride Carbon Dioxide Anion Gap BUN Creatinine Est GFR ( Amer) Est GFR (Non-Af Amer) BUN/Creatinine Ratio Glucose Calcium Total Bilirubin AST ALT Alkaline Phosphatase Total Protein Albumin Globulin Albumin/Globulin Ratio TSH Urine Color Straw Urine Appearance Clear Urine pH 6.0 Ur Specific [place] 1.004 L Urine Protein Negative Urine Ketones Negative Urine Blood 1+ A Urine Nitrate Negative Urine Bilirubin Negative Urine Urobilinogen Negative Ur Leukocyte Esterase Negative Urine WBC (Auto) Absent Urine RBC (Auto) Trace(0-2/hpf) Urine Bacteria Absent Urine Glucose Negative Salicylates Urine Opiates Screen Acetaminophen Ur Barbiturates Screen Ur Phencyclidine Scrn Ur Amphetamines Screen U Benzodiazepines Scrn Urine Cocaine Screen U Cannabinoids Screen Serum Alcohol
[2018-03-01] MEDS ORDERED: LORazepam TAB(*) 1 MG PO ONE (10:16)
[2018-03-01 10:53] VITALS: BP 118/70
== END 2018-03-01 10:49 | disposition home or self-care (01) ==
LOC: ED 21:53
DX: F32.9 Major depressive disorder, single episode, unspecified (principal); R45.851 Suicidal ideations; F19.10 Other psychoactive substance abuse, uncomplicated; F17.210 Nicotine dependence, cigarettes, uncomplicated; F11.11 Opioid abuse, in remission; F10.10 Alcohol abuse, uncomplicated; Y90.6 Blood alcohol level of 120-199 mg/100 ml
CPT/HCPCS: 36415; 80053; 80307; 80320; 80329; 81003; 81015; 84443; 85025; 96374; 96375; 99285; A9270-GY; G0480; J1630; J2060; J2930

== ENCOUNTER 2018-09-06 17:12 | Inpatient (IN) | payer MEDICARE, MEDICAID ==
[2018-09-06 18:57] LABS: ABS Basophils 0.1 10^3/ul (0-0.2); ABS Eosinophils 0.2 10^3/ul (0-0.6); ABS Monocytes 0.9 10^3/ul (0-0.8); Eosinophil % 1.5 %; Hematocrit 47 % (42-52); Hemoglobin 16.4 g/dL (14.0-18.0); Lymphocyte % 39.4 %; Mean Corpuscular HGB Conc 35 g/dL (31-36); Mean Corpuscular Hemoglobin 33 pg (27-31); Mean Corpuscular Volume 94 fL (80-94); Mean Platelet Volume 8.2 fL (7.4-10.4); Nucleated Red Blood Cells % 0.1; Platelet Count 219 10^3/uL (150-450); Red Blood Count 5.01 10^6 /uL (4.18-5.48); Red Cell Distribution Width 13 % (10.5-15); White Blood Count 10.1 10^3/uL (3.5-10.8)
[2018-09-06 19:13] LABS: ALT 22 U/L (7-52); AST 28 U/L (13-39); Albumin 4.9 g/dL (3.2-5.2); Albumin/Globulin Ratio 2.1 (1-3); Alcohol < 10 mg/dL (<10); Alkaline Phosphatase 39 U/L (34-104); Anion Gap 6 mmol/L (2-11); BUN/Creatinine Ratio 13.5 (8-20); Blood Urea Nitrogen 13 mg/dL (6-24); CO2 Carbon Dioxide 26 mmol/L (22-32); Calcium 9.7 mg/dL (8.6-10.3); Chloride 107 mmol/L (101-111); EGFR African American 109.8 (>60); EGFR Non-African American 90.8 (>60); Globulin 2.3 g/dL (2-4); Glucose 82 mg/dL (70-100); Potassium 3.9 mmol/L (3.5-5.0); Salicylate < 2.50 mg/dL (<30); Sodium 139 mmol/L (135-145); Total Protein 7.2 g/dL (6.4-8.9)
[2018-09-06 19:14] LABS: Urine Appearance Clear; Urine Bacteria Absent (Absent); Urine Bilirubin Negative (Negative); Urine Blood 1+ (Negative); Urine Color Yellow; Urine Glucose Negative (Negative); Urine Ketones Negative (Negative); Urine Nitrite Negative (Negative); Urine Protein Negative (Negative); Urine Red Blood Cell 1+(3-5/hpf) (Absent); Urine Specific Gravity 1.003 (1.010-1.030); Urine Urobilinogen Negative (Negative); Urine White Blood Cell Absent (Absent)
[2018-09-06 19:18] LABS: Acetaminophen < 3 mcg/mL
[2018-09-06 19:25] LABS: TSH (Thyroid Stimulating Horm) 2.46 mcIU/mL (0.34-5.60)
[2018-09-06 19:33] LABS: Urine Benzodiazepine Screen None Detected (None Detect); Urine Opiates Screen None Detected (None Detect)
--- NOTE | 2018-09-06 19:39 | ED ---
Psychiatric Complaint - HPI Summary HPI Summary: Pt is a 33 y/o M presenting to the ED with a chief complaint of paranoia. He states he has been here many times and has many diagnoses including paranoia, ADHD, and anxiety, d/t being a . He currently denies SI/HI, and hallucinations. However, he states he will get impulses to do things like suicide or homicide, completely out of the blue, and that hes so paranoid that he does foot patrols around his property and has plans for every kind of situation that could go wrong. He currently takes Depakote, Klonopin, Seroquil, and Zyprexa, but his psychiatrist wants to switch him to Haloperidol. - History Of Current Complaint Chief Complaint: EDMentalHealth Time Seen by Provider: 09/06/18 18:29 Accompanied By: alone Hx Obtained From: Patient Onset/Duration: Sudden Onset, Lasting Minutes, Resolved Timing: Minutes Severity Initially: Severe Severity Currently: Mild Character: Anxious Aggravating Factor(s): Nothing Alleviating Factor(s): Nothing Associated Signs And Symptoms: Positive: Paranoid Behavior. Negative: Hallucinating Related History: Positive For: Prior Psychiatric Issues Has Suicidal: Denies: Thoughts Has Homicidal: Denies: Thoughts - Allergies/Home Medications Allergies/Adverse Reactions: Allergies Allergy/AdvReac Type Severity Reaction Status Date / Time meloxicam Allergy Hives Verified 02/28/18 22:00 Home Medications: Home Medications Divalproex ER TAB(*) [Depakote ER TAB(*)] 1,500 mg PO QAM 09/06/18 [History Confirmed 09/06/18] Gabapentin 800 mg PO TID 09/06/18 [History Confirmed 09/06/18] OLANzapine TAB* [Zyprexa 5 MG TAB*] 5 mg PO BEDTIME 09/06/18 [History Confirmed 09/06/18] Oxycodone IR 10 MG(NF) 10 mg PO TID 09/06/18 [History Confirmed 09/06/18] Quetiapine Fumarate 200 mg PO TID 09/06/18 [History Confirmed 09/06/18] PMH/Surg Hx/FS Hx/Imm Hx Previously Healthy: No Endocrine/Hematology History: Denies: Hx Diabetes, Other Endocrine/Hematological Disorders - Blood clot Cardiovascular History: Denies: Hx Hypertension, Hx Pacemaker/ICD Musculoskeletal History: Reports: Other Musculoskeletal History - broken neck Sensory History: Denies: Hx Legally Blind, Hx Hearing Aid Opthamlomology History: Denies: Hx Legally Blind Neurological History: Reports: Other Neuro Impairments/Disorders - C1-C2 FX 2008 Psychiatric History: Reports: Hx Anxiety, Hx Attention Deficit Hyperactivity Disorder, Hx Eating Disorder, Other Psychiatric Issues/Disorders - Manic Depressive disorder, OCD (obsessive about the anxiety) Denies: Hx Panic Disorder, Hx of Violent Episodes Against Others - Surgical History Surgery Procedure, Year, and Place: 2-Lt Shoulder surgery-2008. [facility] Infectious Disease History: No Infectious Disease History: Denies: Traveled Outside the [place] in Last 30 Days - Family History Known Family History: Positive: Cardiac Disease, Hypertension, Other - Anxiety, COPD, HLD - Social History Lives: With Family Alcohol Use: Daily Alcohol Amount: 2 beers last night. no drinks today Hx Substance Use: Yes Substance Use Type: Reports: Heroin Substance Use Comment - Amount & Last Used: former heroin user,opioids. Hx Tobacco Use: Yes Smoking Status (MU): Heavy Every Day Tobacco Smoker Review of Systems Negative: Other - SI/HI Negative: Other - hallucinations Positive: Anxious, Other - paranoid All Other Systems Reviewed And Are Negative: Yes Physical Exam - Summary Physical Exam Summary: GENERAL: Patient is a well-developed and nourished male who is lying comfortable in the stretcher. Patient is not in any acute respiratory distress. HEAD AND FACE: Normocephalic EYES: PERRLA, EOMI x 2. EARS: Hearing grossly intact. MOUTH: Oropharynx within normal limits. NECK: Supple, trachea is midline, no adenopathy, no JVD, no carotid bruit. CHEST: Symmetric, no tenderness at palpation LUNGS: Clear to auscultation bilaterally. No wheezing or crackles. CVS: Regular rate and rhythm, S1 and S2 present, no murmurs or gallops appreciated. ABDOMEN: Soft, non-tender. Bowel sounds are normal. No abnormal abdominal pulsations. EXTREMITIES: Full ROM in all major joints, no edema, no cyanosis or clubbing. NEURO: Alert and oriented x 3. No acute neurological deficits. Speech is normal and follows commands. SKIN: Dry and warm Psych: Pressured speech, racing thoughts, no SI/HI, no visible or auditory hallucinations. Triage Information Reviewed: Yes Vital Signs On Initial Exam: Initial Vitals Temp Pulse Resp BP Pulse Ox 98.6 F 93 16 138/97 97 09/06/18 17:13 09/06/18 17:13 09/06/18 17:13 09/06/18 17:13 09/06/18 17:13 Vital Signs Reviewed: Yes Diagnostics - Vital Signs Vital Signs Temp Pulse Resp BP Pulse Ox 09/06/18 17:13 98.6 F 93 16 138/97 97 - Laboratory Lab Results: Lab Results 09/06/18 09/06/18 09/06/18 Range/Units 18:42 18:42 18:46 WBC 10.1 (3.5-10.8) 10^3/uL RBC 5.01 (4.18-5.48) 10^6 /uL Hgb 16.4 (14.0-18.0) g/dL Hct 47 (42-52) % MCV 94 (80-94) fL MCH 33 H (27-31) pg MCHC 35 (31-36) g/dL RDW 13 (10.5-15) % Plt Count 219 (150-450) 10^3/uL MPV 8.2 (7.4-10.4) fL Neut % (Auto) 49.1 % Lymph % (Auto) 39.4 % [place] % (Auto) 9.3 % Eos % (Auto) 1.5 % Baso % (Auto) 0.7 % Absolute Neuts (auto) 5.0 (1.5-7.7) 10^3/ul Absolute Lymphs (auto) 4.0 (1.0-4.8) 10^3/ul Absolute Monos (auto) 0.9 H (0-0.8) 10^3/ul Absolute Eos (auto) 0.2 (0-0.6) 10^3/ul Absolute Basos (auto) 0.1 (0-0.2) 10^3/ul Absolute Nucleated RBC 0.0 10^3/ul Nucleated RBC % 0.1 Sodium 139 (135-145) mmol/L Potassium 3.9 (3.5-5.0) mmol/L Chloride 107 (101-111) mmol/L Carbon Dioxide 26 (22-32) mmol/L Anion Gap 6 (2-11) mmol/L BUN 13 (6-24) mg/dL Creatinine 0.96 (0.67-1.17) mg/dL Est GFR ( Amer) 109.8 (>60) Est GFR (Non-Af Amer) 90.8 (>60) BUN/Creatinine Ratio 13.5 (8-20) Glucose 82 (70-100) mg/dL Calcium 9.7 (8.6-10.3) mg/dL Total Bilirubin 0.70 (0.2-1.0) mg/dL AST 28 (13-39) U/L ALT 22 (7-52) U/L Alkaline Phosphatase 39 (34-104) U/L Total Protein 7.2 (6.4-8.9) g/dL Albumin 4.9 (3.2-5.2) g/dL Globulin 2.3 (2-4) g/dL Albumin/Globulin Ratio 2.1 (1-3) TSH 2.46 (0.34-5.60) mcIU/mL Urine Color Yellow Urine Appearance Clear Urine pH 8.0 (5-9) Ur Specific [place] 1.003 L (1.010-1.030) Urine Protein Negative (Negative) Urine Ketones Negative (Negative) Urine Blood 1+ A (Negative) Urine Nitrate Negative (Negative) Urine Bilirubin Negative (Negative) Urine Urobilinogen Negative (Negative) Ur Leukocyte Esterase Negative (Negative) Urine WBC (Auto) Absent (Absent) Urine RBC (Auto) 1+(3-5/hpf) A (Absent) Urine Bacteria Absent (Absent) Urine Glucose Negative (Negative) Salicylates < 2.50 (<30) mg/dL Urine Opiates Screen (None Detect) Acetaminophen < 3 mcg/mL Ur Barbiturates Screen (None Detect) Ur Phencyclidine Scrn (None Detect) Ur Amphetamines Screen (None Detect) U Benzodiazepines Scrn (None Detect) Urine Cocaine Screen (None Detect) U Cannabinoids Screen (None Detect) Serum Alcohol < 10 (<10) mg/dL 09/06/18 Range/Units 18:46 WBC (3.5-10.8) 10^3/uL RBC (4.18-5.48) 10^6 /uL Hgb (14.0-18.0) g/dL Hct (42-52) % MCV (80-94) fL MCH (27-31) pg MCHC (31-36) g/dL RDW (10.5-15) % Plt Count (150-450) 10^3/uL MPV (7.4-10.4) fL Neut % (Auto) % Lymph % (Auto) % [place] % (Auto) % Eos % (Auto) % Baso % (Auto) % Absolute Neuts (auto) (1.5-7.7) 10^3/ul Absolute Lymphs (auto) (1.0-4.8) 10^3/ul Absolute Monos (auto) (0-0.8) 10^3/ul Absolute Eos (auto) (0-0.6) 10^3/ul Absolute Basos (auto) (0-0.2) 10^3/ul Absolute Nucleated RBC 10^3/ul Nucleated RBC % Sodium (135-145) mmol/L Potassium (3.5-5.0) mmol/L Chloride (101-111) mmol/L Carbon Dioxide (22-32) mmol/L Anion Gap (2-11) mmol/L BUN (6-24) mg/dL Creatinine (0.67-1.17) mg/dL Est GFR ( Amer) (>60) Est GFR (Non-Af Amer) (>60) BUN/Creatinine Ratio (8-20) Glucose (70-100) mg/dL Calcium (8.6-10.3) mg/dL Total Bilirubin (0.2-1.0) mg/dL AST (13-39) U/L ALT (7-52) U/L Alkaline Phosphatase (34-104) U/L Total Protein (6.4-8.9) g/dL Albumin (3.2-5.2) g/dL Globulin (2-4) g/dL Albumin/Globulin Ratio (1-3) TSH (0.34-5.60) mcIU/mL Urine Color Urine Appearance Urine pH (5-9) Ur Specific [place] (1.010-1.030) Urine Protein (Negative) Urine Ketones (Negative) Urine Blood (Negative) Urine Nitrate (Negative) Urine Bilirubin (Negative) Urine Urobilinogen (Negative) Ur Leukocyte Esterase (Negative) Urine WBC (Auto) (Absent) Urine RBC (Auto) (Absent) Urine Bacteria (Absent) Urine Glucose (Negative) Salicylates (<30) mg/dL Urine Opiates Screen None detected (None Detect) Acetaminophen mcg/mL Ur Barbiturates Screen None detected (None Detect) Ur Phencyclidine Scrn None detected (None Detect) Ur Amphetamines Screen None detected (None Detect) U Benzodiazepines Scrn None detected (None Detect) Urine Cocaine Screen None detected (None Detect) U Cannabinoids Screen Presumptive positive A (None Detect) Serum Alcohol (<10) mg/dL Result Diagrams: 09/06/18 18:42 09/06/18 18:42 Lab Statement: Any lab studies that have been ordered have been reviewed, and results considered in the medical decision making process. Course/Dx - Course Course Of Treatment: Pt is a 33 y/o M presenting to the ED with a chief complaint of paranoia. He currently denies SI/HI or hallucinations. He reports extreme anxiety and paranoia, as well as past diagnoses of paranoia, ADHD, and anxiety. On exam, the pt has pressured speech, racing thoughts, no SI/HI, no visible or auditory hallucinations. He will be voluntarily admitted to [facility] with a dx of bipolar disorder. - Differential Dx/Clinical Impression Provider Diagnosis: Bipolar disorder Discharge - Sign-Out/Discharge Documenting (check all that apply): Patient Departure - Discharge Plan Condition: Stable Disposition: PSYCHIATRIC FACILITY-[facility] [place] [facility] - Billing Disposition and Condition Condition: STABLE Disposition: Psychiatric Facility [facility] - Attestation Statements Document Initiated by Jefferyibe: Yes Documenting Scribe: Edyta Gonzalez Provider For Whom Casper is Documenting (Include Credential): Naomi Valdez MD. Scribe Attestation: Edyta Montana scribed for Naomi Valdez MD. on 09/07/18 at 1148. Scribe Documentation Reviewed: Yes Provider Attestation: The documentation as recorded by the scribeEdyta accurately reflects the service I personally performed and the decisions made by , Bossman Valdez MD. Status of Scribe Document: Viewed
[2018-09-06] MEDS: Nicotine* 2MG (FRUIT FLAVOR) GUM PO PRN ×2 (20:27→22:31)
[2018-09-06] MEDS ORDERED: LORazepam TAB(*) 1 MG PO ONE (20:57)
[2018-09-06] MEDS ORDERED: Al Hydrox/Mg Hydrox/Simet LIQ* 30 ML UDC PO PRN (22:01)
[2018-09-06] MEDS ORDERED: Acetaminophen TAB* 325 MG PO PRN (22:01)
[2018-09-06] MEDS: Gabapentin CAP(*) 400 MG PO SCH (22:55)
[2018-09-06] MEDS: oxyCODONE TAB* 5 MG TAB PO PRN (22:56)
[2018-09-06] MEDS ORDERED: OLANzapine TAB* 5 MG PO SCH (23:00)
[2018-09-07] MEDS: Nicotine* 2MG (FRUIT FLAVOR) GUM PO PRN ×3 (03:55→11:12)
[2018-09-07] MEDS: clonazePAM TAB(*) 0.5 MG PO PRN ×3 (03:55→08:13)
[2018-09-07] MEDS: oxyCODONE TAB* 5 MG TAB PO PRN ×2 (05:35→08:14)
[2018-09-07 07:47] VITALS: BP 124/83
[2018-09-07] MEDS ORDERED: Divalproex ER TAB(*) 500 MG PO SCH (09:00)
[2018-09-07] MEDS ORDERED: QUEtiapine TAB* 100 MG PO SCH (09:00)
[2018-09-07] MEDS ORDERED: Multivitamins/Minerals TAB PO SCH (09:00)
[2018-09-07] MEDS: Gabapentin CAP(*) 400 MG PO SCH (09:54)
[2018-09-07] MEDS ORDERED: Propranolol TAB* 20 MG PO PRN (10:48)
[2018-09-07] MEDS ORDERED: Nicotine GUM* 2 MG PO PRN (11:35)
[2018-09-07] MEDS ORDERED: Thiamine TAB* 100 MG TAB PO SCH (12:00)
[2018-09-07] MEDS ORDERED: Nicotine PATCH 21 MG/24 HR* PATCH TRANSDERM SCH (12:00)
[2018-09-07] MEDS ORDERED: LORazepam TAB(*) 1 MG PO SCH (12:00)
[2018-09-07] MEDS ORDERED: Folic Acid TAB* 1 MG PO SCH (12:00)
[2018-09-07] MEDS ORDERED: Haloperidol Decanoate* 50 MG/ML AMP IM SCH (13:00)
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
[2018-09-07] MEDS ORDERED: Nicotine Patch Removal NOTE PATCH OFF SCH (21:00)
== END 2018-09-07 13:05 | disposition home or self-care (01) | DRG 885 ==
LOC: ED 17:12 → BSU 21:20 → ED 21:43
PROVIDERS: ADMIT Psychiatry & Neurology Psychiatry; ATTEND Psychiatry & Neurology Psychiatry
DX: F31.61 Bipolar disorder, current episode mixed, mild (principal); F43.10 Post-traumatic stress disorder, unspecified; G89.29 Other chronic pain; F60.2 Antisocial personality disorder; F41.1 Generalized anxiety disorder; F42.9 Obsessive-compulsive disorder, unspecified; F50.9 Eating disorder, unspecified; F90.9 Attention-deficit hyperactivity disorder, unspecified type; F17.210 Nicotine dependence, cigarettes, uncomplicated; Z91.410 Personal history of adult physical and sexual abuse; Z88.8 Allergy status to other drugs, medicaments and biological substances; Z82.49 Family history of ischemic heart disease and other diseases of the circulatory system; Z72.89 Other problems related to lifestyle; Z56.0 Unemployment, unspecified; Z83.6 Family history of other diseases of the respiratory system
CPT/HCPCS: 36415; 80053; 80164; 80307; 80320; 80329; 81003; 81015; 84443; 85025; 99284; A9270-GY; G0480

== ENCOUNTER 2018-11-13 15:47 | Emergency (ER) | payer MEDICARE, MEDICAID ==
[2018-11-13] MEDS ORDERED: clonazePAM TAB(*) 0.5 MG PO ONE (16:23)
[2018-11-13] MEDS ORDERED: LORazepam TAB(*) 1 MG PO ONE ×2 (16:36→17:30)
--- NOTE | 2018-11-13 16:40 | ED ---
Psychiatric Complaint - HPI Summary HPI Summary: This patient is a 33 year old M presenting [place] [facility] accompanied by fiance with a chief complaint of paranoia and anxiety. Pt reports he is extremely anxious and agoraphobic and he is close to suicidal ideations. Pt has a past medical history of anxiety, OCD, bipolar disorder and multiple ED visits for psych related complaints. Pt reports he has not taken his medications, due to his "doctor cutting him off" (was on depakote at one point), after he requested to switch from clonazepam to Ativan. The last time he was admitted to a hospital was 6 months ago, and that was when he received Ativan which worked well for him. - History Of Current Complaint Chief Complaint: EDMentalHealth Time Seen by Provider: 11/13/18 15:55 Hx Obtained From: Patient Onset/Duration: Gradual Onset Timing: Constant Character: Fearful, Anxious Aggravating Factor(s): Nothing Alleviating Factor(s): Medication Associated Signs And Symptoms: Positive: Paranoid Behavior Has Suicidal: Reports: Thoughts - Allergies/Home Medications Allergies/Adverse Reactions: Allergies Allergy/AdvReac Type Severity Reaction Status Date / Time meloxicam Allergy Hives Verified 02/28/18 22:00 PMH/Surg Hx/FS Hx/Imm Hx Endocrine/Hematology History: Denies: Hx Diabetes, Other Endocrine/Hematological Disorders - Blood clot Cardiovascular History: Denies: Hx Hypertension, Hx Pacemaker/ICD Musculoskeletal History: Reports: Other Musculoskeletal History - broken neck Sensory History: Denies: Hx Legally Blind, Hx Hearing Aid Opthamlomology History: Denies: Hx Legally Blind Neurological History: Reports: Other Neuro Impairments/Disorders - C1-C2 FX 2007 Psychiatric History: Reports: Hx Anxiety, Hx Attention Deficit Hyperactivity Disorder, Hx Eating Disorder, Other Psychiatric Issues/Disorders - Manic Depressive disorder, OCD (obsessive about the anxiety) Denies: Hx Panic Disorder, Hx of Violent Episodes Against Others - Surgical History Surgery Procedure, Year, and Place: 2-Lt Shoulder surgery-2008. [facility] Infectious Disease History: No Infectious Disease History: Denies: Traveled Outside the [place] in Last 30 Days - Family History Known Family History: Positive: Cardiac Disease, Hypertension, Other - Anxiety, COPD, HLD - Social History Alcohol Use: None Hx Substance Use: Yes Substance Use Type: Reports: Heroin Substance Use Comment - Amount & Last Used: former heroin user,opioids. Hx Tobacco Use: Yes Smoking Status (MU): Heavy Every Day Tobacco Smoker Cessation Counseling: Counseled 3+Min - 10 Min Review of Systems Negative: Fever Positive: Anxious, Other - pos - paranoid All Other Systems Reviewed And Are Negative: Yes Physical Exam - Summary Physical Exam Summary: Constitutional: Well-developed, Well-nourished, Alert. (-) Distressed Skin: Warm, Dry HENT: Normocephalic; Atraumatic Eyes: Conjunctiva normal Neck: Musculoskeletal ROM normal neck. (-) JVD, (-) Stridor Cardio: Rhythm regular, rate normal, Heart sounds normal; Intact distal pulses; Radial pulses are 2+ and symmetric. (-) Murmur Pulmonary/Chest wall: Effort normal. (-) Respiratory distress, (-) Wheezes, (-) Rales Abd: Soft, (-) tenderness, (-) Distension, (-) Guarding, (-) Rebound Musculoskeletal: (-) Edema Lymph: (-) Cervical adenopathy Neuro: Alert, Oriented x3 Psych: Anxious, poor insight Triage Information Reviewed: Yes Vital Signs On Initial Exam: Initial Vitals Temp Pulse Resp BP Pulse Ox 98.9 F 91 18 135/95 97 11/13/18 15:48 11/13/18 15:48 11/13/18 15:48 11/13/18 15:48 11/13/18 15:48 Vital Signs Reviewed: Yes Diagnostics - Vital Signs Vital Signs Temp Pulse Resp BP Pulse Ox 11/13/18 15:48 98.9 F 91 18 135/95 97 - Laboratory Result Diagrams: 11/13/18 17:10 11/13/18 17:10 Lab Statement: Any lab studies that have been ordered have been reviewed, and results considered in the medical decision making process. Course/Dx - Course Course Of Treatment: Pt is a 33 year old M with above psych Hx, presents for severe anxiety. Plan for labs and mental health evaluation. Evaluated mental health, pt request to be transferred to [place], they will check on availability. Pt can be transfer to [facility], per Dr Ledbetter. Dx of PTSD, Bipolar. Pt is a sign out from Dr. Sutherland to Dr. Boateng at 1900 on 11/13/18 pending mental health evalution. - Differential Dx/Clinical Impression Provider Diagnosis: Bipolar 1 disorder, PTSD (post-traumatic stress disorder) Discharge - Sign-Out/Discharge Documenting (check all that apply): Sign-Out Patient Signing out patient TO: Yuli Boateng - Pt is a sign out from Dr. Sutherland to Dr. Boateng at 1900 on 11/13/18 pending mental health evalution. - Discharge Plan Referrals: Joon Harris MD [Primary Care Provider] - - Attestation Statements Document Initiated by Casper: Yes Documenting Scribe: Morena Lehman Provider For Whom Casper is Documenting (Include Credential): Dr. Alberto Sutherland MD Scribe Attestation: I, mayo Bandaed for Dr. Alberto Sutherland MD on 11/13/18 at 1904. Scribe Documentation Reviewed: Yes Provider Attestation: The documentation as recorded by the Morena beatty accurately reflects the service I personally performed and the decisions made by me, Dr. Alberto Sutherland MD Status of Scribe Document: Viewed
[2018-11-13 17:11] LABS: Urine Appearance Cloudy; Urine Bacteria Absent (Absent); Urine Bilirubin Negative (Negative); Urine Blood 2+ (Negative); Urine Color Amber; Urine Glucose Negative (Negative); Urine Ketones Trace (Negative); Urine Nitrite Negative (Negative); Urine Protein Negative (Negative); Urine Red Blood Cell 3+(>10/hpf) (Absent); Urine Specific Gravity 1.027 (1.010-1.030); Urine Urobilinogen Negative (Negative); Urine White Blood Cell Trace(0-5/hpf) (Absent)
[2018-11-13 17:16] LABS: Urine Benzodiazepine Screen None Detected (None Detect); Urine Opiates Screen None Detected (None Detect)
[2018-11-13 17:20] LABS: ABS Basophils 0.1 10^3/ul (0-0.2); ABS Lymphocytes 2.3 10^3/ul (1.0-4.8); ABS Monocytes 0.6 10^3/ul (0-0.8); ABS Neutrophils 6.7 10^3/ul (1.5-7.7); Eosinophil % 0.3 %; Hematocrit 47 % (42-52); Hemoglobin 16.3 g/dL (14.0-18.0); Lymphocyte % 23.8 %; Mean Corpuscular HGB Conc 34 g/dL (31-36); Mean Corpuscular Hemoglobin 32 pg (27-31); Mean Corpuscular Volume 93 fL (80-94); Mean Platelet Volume 7.9 fL (7.4-10.4); Nucleated Red Blood Cells % 0.1; Platelet Count 209 10^3/uL (150-450); Red Blood Count 5.11 10^6 /uL (4.18-5.48); Red Cell Distribution Width 13 % (10-15); White Blood Count 9.7 10^3/uL (3.5-10.8)
[2018-11-13 17:42] LABS: ALT 10 U/L (7-52); AST 15 U/L (13-39); Albumin 4.6 g/dL (3.2-5.2); Alkaline Phosphatase 38 U/L (34-104); Anion Gap 5 mmol/L (2-11); BUN/Creatinine Ratio 13.6 (8-20); Blood Urea Nitrogen 12 mg/dL (6-24); CO2 Carbon Dioxide 27 mmol/L (22-32); Calcium 9.7 mg/dL (8.6-10.3); Chloride 106 mmol/L (101-111); EGFR African American 121.4 (>60); EGFR Non-African American 100.4 (>60); Globulin 2.3 g/dL (2-4); Glucose 74 mg/dL (70-100); Potassium 3.8 mmol/L (3.5-5.0); Sodium 138 mmol/L (135-145); Total Protein 6.9 g/dL (6.4-8.9)
[2018-11-13 17:57] LABS: Acetaminophen < 15 mcg/mL; Alcohol < 10 mg/dL (<10); Salicylate < 2.50 mg/dL (<30)
[2018-11-13] MEDS ORDERED: Nicotine Lozenge* mini 4 MG LOZNG.MINI MT ONE (18:42)
--- NOTE | 2018-11-13 19:18 | ED ---
Progress - Progress Note Progress Note: Pt is a signout from Dr. Sutherland to Dr. Boateng at 1900 on 11/13/18, pending transfer to higher level mental facility. - Consult/PCP Time Called: 18:06 Course/Dx - Course Course Of Treatment: Pt is a 33 year old M with above psych Hx, presents for severe anxiety. Plan for labs and mental health evaluation. Evaluated mental health, pt request to be transferred to [place], they will check on availability. Pt can be transfer to [facility], per Dr Ledbetter. Dx of PTSD, Bipolar. Pt is a sign out from Dr. Sutherland to Dr. Boateng at 1900 on 11/13/18 pending mental health evalution. Pt notes taking oxycodone since May 22, 2018. At 2210, Dr. Boateng discusses patient's case with Dr. Betancur. Dr. Betancur agrees to accept patient to mental health facility. - Diagnoses Provider Diagnoses: Bipolar 1 disorder, PTSD (post-traumatic stress disorder) - Provider Notifications Discussed Care Of Patient With: Vinny Betancur Time Discussed With Above Provider: 22:10 Instructed by Provider To: Other - Dr. Boateng discusses patient's case with Dr. Betancur. Dr. Betancur agrees to accept patient to mental health facility. Discharge - Sign-Out/Discharge Documenting (check all that apply): Patient Departure - to higher level mental health facility Patient Received Moderate/Deep Sedation with Procedure: No - Discharge Plan Condition: Stable Disposition: PSYCHIATRIC FACILITY-OTHER Referrals: Joon Harris MD [Primary Care Provider] - - Attestation Statements Document Initiated by Scribe: Yes Documenting Scribe: Morena Lehman Provider For Whom Jefferyibaditya is Documenting (Include Credential): Dr. Yuli Boateng MD Scribe Attestation: Morena [place] scribed for Dr. Yuli Boateng MD on 11/13/18 at [id number]. Status of Scribe Document: Ready
[2018-11-13] MEDS ORDERED: Ibuprofen TAB* 400 MG PO ONE (20:06)
[2018-11-13] MEDS ORDERED: Haloperidol INJ IV/IM* 5 MG/ML AMP IM ONE (20:28)
[2018-11-13] MEDS ORDERED: diPHENhydraMINE IV* 50 MG/ML 1 ml VIAL (BENADRYL) IM ONE (20:29)
[2018-11-13] MEDS ORDERED: Lorazepam PYXIS KEY PRN (20:29)
[2018-11-13] MEDS ORDERED: LORazepam INJ* 2 MG/ML 1 ML VIAL IM ONE (20:29)
[2018-11-13] MEDS ORDERED: Lorazepam PYXIS KEY ONE (20:34)
[2018-11-13] MEDS ORDERED: LORazepam INJ* 2 MG/ML 1 ML VIAL ONE (20:35)
[2018-11-13 22:18] VITALS: BP 100/65
== END 2018-11-13 22:46 ==
LOC: ED 15:47
DX: F31.9 Bipolar disorder, unspecified (principal); F43.10 Post-traumatic stress disorder, unspecified; Z88.8 Allergy status to other drugs, medicaments and biological substances; Z71.6 Tobacco abuse counseling; F17.200 Nicotine dependence, unspecified, uncomplicated
CPT/HCPCS: 36415; 80053; 80164; 80307; 80320; 80329; 81003; 81015; 85025; 87086; 93005; 96372; 99285; A9270-GY; G0480; J1200; J1630; J2060

== ENCOUNTER 2019-03-27 14:58 | Emergency (ER) | payer MEDICARE, MEDICAID ==
--- NOTE | 2019-03-27 15:42 | ED ---
Psychiatric Complaint - HPI Summary HPI Summary: Patient is a 34 y/o M presenting to the ED for a psychiatric complaint. He reports this most recent episode of paranoia began 8 days ago when he believed his girlfriend hacked into his phone. He also states he felt if he slept someone would come to his house and steal from him. He reports sleeping a few hours a night. He recently stopped taking his medications 8 days ago because of his feelings of paranoia. Patient broke up with his girlfriend and the patient' s parents helped the patient move out of his house. He told his parents he felt he needed to be seen at [facility]. He admits changes in eating and drinking habits. Patient denies HI, hallucinations, SI, abdominal pain, myalgia, or fever. He has a history of SI and HI with an intent to kill someone 2 years ago. Patient admits to drinking a beer on 03/27/19, tobacco use, and marijuana use most recently on 03/27/19. PMHx is significant for generalized anxiety disease, bipolar, panic disorder, and agoraphobia. Medications reviewed. Allergies noted. - History Of Current Complaint Chief Complaint: EDMentalHealth Time Seen by Provider: 03/27/19 15:40 Hx Obtained From: Patient Onset/Duration: Gradual Onset, Still Present Timing: Constant Severity Initially: Moderate Severity Currently: Moderate Character: Anxious Aggravating Factor(s): Nothing Alleviating Factor(s): Nothing Associated Signs And Symptoms: Positive: Paranoid Behavior Related History: Positive For: Prior Psychiatric Issues Has Suicidal: Denies: Thoughts Has Homicidal: Reports: Has Prior Attempt(s). Denies: Thoughts - Allergies/Home Medications Allergies/Adverse Reactions: Allergies Allergy/AdvReac Type Severity Reaction Status Date / Time meloxicam Allergy Hives Verified 02/28/18 22:00 Home Medications: Home Medications Pregabalin CAP(*) [Lyrica CAP(*)] 100 mg PO TID 03/27/19 [History Confirmed ] Tamsulosin CAP* [Flomax CAP*] 0.4 mg PO DAILY 03/27/19 [History Confirmed ] oxyCODONE TAB* [Roxycodone TAB 5 mg*] 5 mg PO Q8H PRN 03/27/19 [History Confirmed 11/26/19] PMH/Surg Hx/FS Hx/Imm Hx Previously Healthy: Yes Endocrine/Hematology History: Denies: Hx Diabetes, Other Endocrine/Hematological Disorders - Blood clot Cardiovascular History: Denies: Hx Hypertension, Hx Pacemaker/ICD Musculoskeletal History: Reports: Other Musculoskeletal History - broken neck Sensory History: Denies: Hx Legally Blind, Hx Deafness, Hx Hearing Aid Opthamlomology History: Denies: Hx Legally Blind EENT History: Denies: Hx Deafness Neurological History: Reports: Other Neuro Impairments/Disorders - C1-C2 FX 2007 Psychiatric History: Reports: Hx Anxiety, Hx Attention Deficit Hyperactivity Disorder, Hx Eating Disorder, Other Psychiatric Issues/Disorders - Manic Depressive disorder, OCD (obsessive about the anxiety) Denies: Hx Panic Disorder, Hx of Violent Episodes Against Others - Surgical History Surgical History: Yes Surgery Procedure, Year, and Place: 2-Lt Shoulder surgery-2008. [facility] Infectious Disease History: No Infectious Disease History: Denies: Traveled Outside the [place] in Last 30 Days - Family History Known Family History: Positive: Cardiac Disease, Hypertension, Other - Anxiety, COPD, HLD - Social History Occupation: Unemployed Lives: With Family Alcohol Use: None Hx Substance Use: Yes Substance Use Type: Reports: Heroin Substance Use Comment - Amount & Last Used: former heroin user,opioids. Hx Tobacco Use: Yes Smoking Status (MU): Heavy Every Day Tobacco Smoker Review of Systems Positive: Other - Positive changes in eating and drinking habits. Negative: Fever Negative: Abdominal Pain Negative: Myalgia Positive: Anxious, Other - Positive paranoia; negative SI, HI, or hallucinations. All Other Systems Reviewed And Are Negative: Yes Physical Exam - Summary Physical Exam Summary: Constitutional: Well-developed, Well-nourished, Alert. (-) Distressed Skin: Warm, Dry HENT: Normocephalic; Atraumatic Eyes: Conjunctiva normal Neck: Musculoskeletal ROM normal neck. (-) JVD, (-) Stridor, (-) Tracheal deviation Cardio: Rhythm regular, rate normal, Heart sounds normal; Intact distal pulses; Radial pulses are 2+ and symmetric. (-) Murmur Pulmonary/Chest wall: Effort normal. (-) Respiratory distress, (-) Wheezes, (-) Rales Abd: Soft, (-) tenderness, (-) Distension, (-) Guarding, (-) Rebound Musculoskeletal: (-) Edema Lymph: (-) Cervical adenopathy Neuro: Alert, Oriented x3 Psych: Mood and affect Normal. Pressured speech. Triage Information Reviewed: Yes Vital Signs On Initial Exam: Initial Vitals Temp Pulse Resp BP Pulse Ox 97.8 F 123 18 109/89 96 03/27/19 14:59 03/27/19 14:59 03/27/19 14:59 03/27/19 14:59 03/27/19 14:59 Vital Signs Reviewed: Yes Procedures - Sedation Patient Received Moderate/Deep Sedation with Procedure: No Diagnostics - Vital Signs Vital Signs Temp Pulse Resp BP Pulse Ox 03/27/19 14:59 97.8 F 123 18 109/89 96 - Laboratory Result Diagrams: 03/27/19 16:02 03/27/19 16:02 Lab Statement: Any lab studies that have been ordered have been reviewed, and results considered in the medical decision making process. - EKG 16:14 Cardiac Rate: NL - 97 BPM EKG Rhythm: Sinus Rhythm ST Segment: Normal Ectopy: None Summary of EKG Findings: EKG at 16:14 shows 97 BPM with normal sinus rhythm, benign early repolarization, no STEMI. Reviewed and interpreted by Dr. Connors. Re-Evaluation - Re-Evaluation First Eval Re-Evaluation Time: 15:51 Change: Unchanged Comment: At 15:51, patient is medically cleared for a MHE. Second Eval Re-Evaluation Time: 20:10 Change: Unchanged Comment: At 20:10, patient does not want to stay and has no holds on him. I feel comfortable discharging the patient. Course/Dx - Course Course Of Treatment: Patient is here with paranoid thoughts after stopping his medications. Upon arrival, patient had no red flag symptoms necessitating involuntary hold. Patient had blood cultures grossly unremarkable. Patient was medically cleared by myself. While awaiting evaluation by the psychiatric team, patient decided he wants to leave and I did not think patient had any symptoms necessitating hold against his will. - Differential Dx/Clinical Impression Provider Diagnosis: Paranoia, Manic episode, Bipolar disorder Discharge ED - Sign-Out/Discharge Documenting (check all that apply): Patient Departure - Discharge - Discharge Plan Condition: Stable Disposition: HOME Patient Education Materials: Bipolar Disorder (ED) Referrals: Joon Harris MD [Primary Care Provider] - [facility] [Outside] Additional Instructions: PLEASE RETURN TO EMERGENCY DEPARTMENT FOR ANY NEW OR WORSENING SYMPTOMS OR YOU WANT A MENTAL HEALTH EVALUATION. Please follow up with your primary care physician. Please make all follow-ups in 1-3 days unless I advise you otherwise. - Billing Disposition and Condition Condition: STABLE Disposition: Home - Attestation Statements Document Initiated by Casper: Yes Documenting Scribe: Estela Ojeda Provider For Whom Jefferyibaditya is Documenting (Include Credential): Chandler Connors MD Scribe Attestation: IEstela, scribed for Chandler Connors MD on 03/27/19 at 2026. Scribe Documentation Reviewed: Yes Provider Attestation: The documentation as recorded by the Estela beatty accurately reflects the service I personally performed and the decisions made by me, Chandler Connors MD Status of Scribe Document: Viewed
[2019-03-27] MEDS ORDERED: LORazepam TAB(*) 1 MG PO ONE ×2 (15:51→18:14)
[2019-03-27 16:24] LABS: ALT 19 U/L (7-52); AST 27 U/L (13-39); Albumin 4.6 g/dL (3.2-5.2); Albumin/Globulin Ratio 1.8 (1-3); Alkaline Phosphatase 44 U/L (34-104); Anion Gap 8 mmol/L (2-11); BUN/Creatinine Ratio 16.3 (8-20); Blood Urea Nitrogen 17 mg/dL (6-24); CO2 Carbon Dioxide 25 mmol/L (22-32); Chloride 106 mmol/L (101-111); EGFR African American 99.5 (>60); EGFR Non-African American 82.2 (>60); Globulin 2.5 g/dL (2-4); Glucose 102 mg/dL (70-100); Potassium 3.4 mmol/L (3.5-5.0); Sodium 139 mmol/L (135-145); Total Protein 7.1 g/dL (6.4-8.9)
[2019-03-27 16:33] LABS: Acetaminophen < 15 mcg/mL; Alcohol 40 mg/dL (<10); Salicylate < 2.50 mg/dL (<30)
[2019-03-27 16:34] LABS: ABS Basophils 0.1 10^3/ul (0-0.2); ABS Eosinophils 0.1 10^3/ul (0-0.6); ABS Lymphocytes 3.3 10^3/ul (1.0-4.8); ABS Monocytes 1.2 10^3/ul (0-0.8); ABS Neutrophils 7.1 10^3/ul (1.5-7.7); Eosinophil % 0.5 %; Hematocrit 49 % (42-52); Hemoglobin 17.3 g/dL (14.0-18.0); Lymphocyte % 28.5 %; Mean Corpuscular HGB Conc 35 g/dL (31-36); Mean Corpuscular Hemoglobin 33 pg (27-31); Mean Corpuscular Volume 94 fL (80-94); Mean Platelet Volume 8.9 fL (7.4-10.4); Nucleated Red Blood Cells % 0.1; Platelet Count 215 10^3/uL (150-450); Red Blood Count 5.27 10^6 /uL (4.18-5.48); Red Cell Distribution Width 12 % (10-15); White Blood Count 11.7 10^3/uL (3.5-10.8)
[2019-03-27] MEDS: Nicotine* 4MG (FRUIT FLAVOR) GUM PO PRN ×2 (17:43→19:47)
[2019-03-27 19:44] LABS: Urine Appearance Cloudy; Urine Bilirubin Negative (Negative); Urine Blood Negative (Negative); Urine Color Yellow; Urine Glucose Negative (Negative); Urine Ketones Negative (Negative); Urine Nitrite Negative (Negative); Urine Protein Negative (Negative); Urine Specific Gravity 1.027 (1.010-1.030); Urine Urobilinogen Negative (Negative)
[2019-03-27 20:09] LABS: Urine Benzodiazepine Screen None Detected (None Detect); Urine Opiates Screen None Detected (None Detect)
[2019-03-27 20:19] VITALS: BP 122/81
== END 2019-03-27 20:18 | disposition home or self-care (01) ==
LOC: ED 14:58
DX: F22 Delusional disorders (principal); F31.9 Bipolar disorder, unspecified; F41.9 Anxiety disorder, unspecified; F90.9 Attention-deficit hyperactivity disorder, unspecified type; F17.200 Nicotine dependence, unspecified, uncomplicated; Z79.899 Other long term (current) drug therapy; Z88.8 Allergy status to other drugs, medicaments and biological substances
CPT/HCPCS: 36415; 80053; 80307; 80320; 80329; 81003; 85025; 93005; 99282; A9270-GY; G0480